=== PATIENT | male | born 1990 | race African-American/Black ===

== ENCOUNTER 2017-05-04 02:08 | Inpatient (IN) | payer MEDICAID, OTHER ==
[~2017-05-04] VITALS: Ht 167.6 cm; Wt 57.9 kg
[2017-05-04 03:50] LABS: Basophils # (auto) 0.1 uL; Basophils % (auto) 0.6 % (0.0-2.0); Eosinophils # (auto) 0.2 uL; Eosinophils % (auto) 1.1 % (0.0-7.0); Hematocrit 37.9 % (41.0-53.0); Hemoglobin 12.5 g/dL (13.5-17.5); Lymphocytes # (auto) 3.7 uL; Lymphocytes % (auto) 23.5 % (10.0-50.0); Mean Corpuscular Hemoglobin 28.6 pg (28.0-32.0); Mean Corpuscular Hgb Conc. 32.9 g/dL (32.0-36.0); Mean Corpuscular Volume 86.9 fL (80.0-100.0); Monocytes # (auto) 1.5 uL; Monocytes % (auto) 9.6 % (0.0-12.0); Neutrophils # (auto) 10.2 uL; Neutrophils % (auto) 65.2 % (37.0-80.0); Nucleated Red Blood Cells % 0.2 %; Platelet Count (auto) 201 10^3/uL (140-450); Red Cell Distribution Width 15.6 % (11.8-14.3); White Blood Cell 15.7 10^3/uL (4.4-10.8)
[2017-05-04 03:52] LABS: Lactic Acid w/Reflex 3.2 mmol/L (0.4-2.0)
[2017-05-04 03:56] LABS: REFLEX LACTIC ACID YES OR NO YES
[2017-05-04 04:21] LABS: Albumin 2.5 g/dL (3.4-5.0); BUN/Creatinine Ratio 12.1; Calcium 8.2 mg/dL (8.5-10.1); Potassium 3.8 mmol/L (3.5-5.1)
[2017-05-04 04:24] LABS: Bilirubin, Total 0.2 mg/dL (0.2-1.0); Total Protein 8.1 g/dL (6.4-8.2)
[2017-05-04] MEDS ORDERED: SODIUM CHLORIDE 0.9% 1,000 ML IV ONE ×2 (07:14)
[2017-05-04] MEDS ORDERED: LEVOFLOXACIN 500MG 100 ML IV ONE (07:15)
[2017-05-04] MEDS ORDERED: CLINDAMYCIN 900MG IV 50 ML IV ONE (07:15)
[2017-05-04] MEDS ORDERED: HYDROcodone-ACET 5/325MG TAB PO ONE (07:45)
[2017-05-04 08:04] LABS: INR 1.09 (0.9-1.15); Partial Thromboplastin Time 29.4 sec (22.64-33.71); Prothrombin Time 11.9 sec (9.37-12.3)
[2017-05-04] MEDS ORDERED: LORazepam 0.5 MG TAB PO PRN (09:00)
[2017-05-04] MEDS ORDERED: TEMAZEPAM 15 MG CAP PO PRN (09:00)
[2017-05-04] MEDS ORDERED: NITROGLYCERIN 0.4 MG SL TAB SL PRN (09:00)
[2017-05-04] MEDS ORDERED: PROMETHAZINE HCL 25 MG/ML 1ML IV PRN (09:00)
[2017-05-04] MEDS ORDERED: LABETALOL HCL 5 MG/ML ML 20ML VIAL IV PRN ×2 (09:00)
[2017-05-04] MEDS ORDERED: ACETAMINOPHEN 500 MG TAB PO PRN (09:00)
[2017-05-04] MEDS ORDERED: LACTULOSE 20Gm/30ML SOLN PO PRN (09:00)
[2017-05-04] MEDS ORDERED: HYDROcodone-ACET 5/325MG TAB PO PRN (09:00)
[2017-05-04] MEDS ORDERED: MORPHINE SULF INJ 2 MG/ML SYRINGE 1ML IV PRN ×2 (09:00)
[2017-05-04] MEDS ORDERED: VANCOMYCIN PER PHARMACY 0 MG IV SCH (09:30)
[2017-05-04] MEDS ORDERED: ERTAPENEM SOD INJ 1 GM in SODIUM CHL 0.9% 50 ML IV SCH (10:00)
[2017-05-04] MEDS ORDERED: LEVOFLOXACIN 500MG 100 ML IV SCH (10:00)
[2017-05-04] MEDS: FAMOTIDINE (10MG/ML) 2ML VL IV SCH ×2 (10:08→22:56)
[2017-05-04] MEDS: ENOXAPARIN SOD 40 MG/0.4 ML SYRINGE SC SCH (10:08)
[2017-05-04] MEDS ORDERED: VANCOMYCIN 750 MG in SODIUM CHL 0.9% 250 ML IV SCH (11:00)
[2017-05-04 11:09] LABS: Urine Bilirubin Negative (Negative); Urine Blood TRACE /uL (Negative); Urine Color Yellow (Yellow); Urine Glucose Normal (Normal); Urine Ketone Negative (Negative); Urine Mucus FEW (None Seen); Urine Nitrite Negative (Negative); Urine RBC 13 /hpf (0 - 3); Urine Urobilinogen Normal (Negative); Urine WBC Clumps PRESENT /hpf (None Seen); Urine pH 6.5 (5.0-8.0)
[2017-05-04] MEDS ORDERED: CLINDAMYCIN 600MG IV 50 ML IV SCH (14:00)
[2017-05-04] MEDS ORDERED: VANCOMYCIN 1GM/250ML 250 ML IV ONE (23:49)
[2017-05-05] VITALS (8 sets, daily range): BP systolic 100–137; BP diastolic 54–85
[2017-05-05] MEDS: VANCOMYCIN 750 MG in D5W 5% 250 ML IV SCH ×2 (00:14→10:54)
[2017-05-05 05:49] LABS: Basophils # (auto) 0.1 uL; Basophils % (auto) 0.6 % (0.0-2.0); Eosinophils # (auto) 0.3 uL; Eosinophils % (auto) 2.8 % (0.0-7.0); Hematocrit 33.5 % (41.0-53.0); Hemoglobin 11.1 g/dL (13.5-17.5); Lymphocytes # (auto) 2.5 uL; Lymphocytes % (auto) 22.5 % (10.0-50.0); Mean Corpuscular Hemoglobin 28.7 pg (28.0-32.0); Mean Corpuscular Hgb Conc. 33.1 g/dL (32.0-36.0); Mean Corpuscular Volume 86.9 fL (80.0-100.0); Mean Platelet Volume 8.2 fL (6.9-10.8); Monocytes # (auto) 1.4 uL; Monocytes % (auto) 12.3 % (0.0-12.0); Neutrophils # (auto) 6.9 uL; Neutrophils % (auto) 61.8 % (37.0-80.0); Nucleated Red Blood Cells % 0.1 %; Platelet Count (auto) 441 10^3/uL (140-450); Red Cell Distribution Width 15.4 % (11.8-14.3); White Blood Cell 11.2 10^3/uL (4.4-10.8)
[2017-05-05 06:01] LABS: Albumin 2.5 g/dL (3.4-5.0); BUN/Creatinine Ratio 9.1; Calcium 8.5 mg/dL (8.5-10.1); Potassium 3.5 mmol/L (3.5-5.1)
[2017-05-05 06:04] LABS: Bilirubin, Total 0.4 mg/dL (0.2-1.0); Total Protein 7.8 g/dL (6.4-8.2)
[2017-05-05] MEDS: FAMOTIDINE (10MG/ML) 2ML VL IV SCH ×2 (09:25→21:53)
[2017-05-05] MEDS: ENOXAPARIN SOD 40 MG/0.4 ML SYRINGE SC SCH (09:27)
[2017-05-05] MEDS ORDERED: ERTAPENEM SOD INJ 1 GM in SODIUM CHL 0.9% 100 ML IV SCH (10:00)
[2017-05-05] MEDS ORDERED: POLYETHYLENE GLYCOL 17 GM PWDR PO ONE (16:15)
[2017-05-05] MEDS: LEVOFLOXACIN 500MG 100 ML IV SCH (17:34)
[2017-05-05] MEDS: DOCUSATE SOD 100 MG CAP PO SCH ×2 (17:35→21:53)
[2017-05-05] MEDS: CLINDAMYCIN HCL 150 MG CAP PO SCH (21:52)
[2017-05-05] MEDS: metroNIDAZOLE 500 MG TAB PO SCH (21:52)
[2017-05-06 05:11] VITALS: BP 121/71
[2017-05-06 05:52] LABS: Basophils # (auto) 0.1 uL; Eosinophils # (auto) 0.2 uL; Hemoglobin 11.5 g/dL (13.5-17.5); Lymphocytes # (auto) 2.5 uL; White Blood Cell 10.3 10^3/uL (4.4-10.8)
[2017-05-06 05:57] LABS: Basophils % (auto) 0.8 % (0.0-2.0); Hematocrit 34.4 % (41.0-53.0); Lymphocytes % (auto) 24.5 % (10.0-50.0); Mean Corpuscular Hemoglobin 28.7 pg (28.0-32.0); Mean Corpuscular Hgb Conc. 33.4 g/dL (32.0-36.0); Mean Corpuscular Volume 85.8 fL (80.0-100.0); Monocytes # (auto) 1.3 uL; Monocytes % (auto) 12.7 % (0.0-12.0); Neutrophils # (auto) 6.2 uL; Platelet Count (auto) 466 10^3/uL (140-450); Red Cell Distribution Width 15.2 % (11.8-14.3)
[2017-05-06 06:03] LABS: INR 1.16 (0.9-1.15); Partial Thromboplastin Time 30.1 sec (22.64-33.71); Prothrombin Time 12.7 sec (9.37-12.3)
[2017-05-06] MEDS: CLINDAMYCIN HCL 150 MG CAP PO SCH ×3 (06:13→21:43)
[2017-05-06] MEDS: DOCUSATE SOD 100 MG CAP PO SCH ×3 (06:13→21:44)
[2017-05-06] MEDS: metroNIDAZOLE 500 MG TAB PO SCH ×3 (06:13→21:44)
[2017-05-06 06:15] LABS: BUN/Creatinine Ratio 15.4; Calcium 8.3 mg/dL (8.5-10.1); Magnesium 2.4 mg/dL (1.6-2.6); Potassium 3.8 mmol/L (3.5-5.1)
[2017-05-06 07:16] LABS: Anisocytosis Slight; Platelet Estimate Increased
[2017-05-06 08:00] VITALS: BP 108/68
[2017-05-06 09:00] VITALS: BP 108/68
[2017-05-06] MEDS: FAMOTIDINE (10MG/ML) 2ML VL IV SCH ×2 (09:57→21:44)
[2017-05-06] MEDS: LEVOFLOXACIN 500MG 100 ML IV SCH (09:57)
[2017-05-06] MEDS: ENOXAPARIN SOD 40 MG/0.4 ML SYRINGE SC SCH (09:57)
[2017-05-06 13:00] VITALS: BP 119/68
[2017-05-06 17:06] VITALS: BP 134/78
[2017-05-06 22:00] VITALS: BP 82/44
[2017-05-07 05:00] VITALS: BP 125/52
[2017-05-07] MEDS: metroNIDAZOLE 500 MG TAB PO SCH ×3 (05:29→22:36)
[2017-05-07] MEDS: DOCUSATE SOD 100 MG CAP PO SCH ×3 (05:29→22:00)
[2017-05-07] MEDS: CLINDAMYCIN HCL 150 MG CAP PO SCH ×3 (05:33→22:00)
[2017-05-07 08:00] VITALS: BP 125/76
[2017-05-07 09:00] VITALS: BP 125/76
[2017-05-07] MEDS ORDERED: CLINDAMYCIN HCL 150 MG CAP PO ONE (09:00)
[2017-05-07 09:47] LABS: Basophils # (auto) 0.1 uL; Eosinophils # (auto) 0.1 uL; Nucleated Red Blood Cells % 0.1 %
[2017-05-07 09:49] LABS: Basophils % (auto) 0.6 % (0.0-2.0); Eosinophils % (auto) 1.4 % (0.0-7.0); Hemoglobin 13.2 g/dL (13.5-17.5); Lymphocytes # (auto) 2.2 uL; Lymphocytes % (auto) 20.3 % (10.0-50.0); Mean Corpuscular Hemoglobin 28.5 pg (28.0-32.0); Mean Corpuscular Hgb Conc. 32.9 g/dL (32.0-36.0); Mean Corpuscular Volume 86.5 fL (80.0-100.0); Mean Platelet Volume 7.6 fL (6.9-10.8); Monocytes # (auto) 1.4 uL; Monocytes % (auto) 12.8 % (0.0-12.0); Neutrophils # (auto) 7.2 uL; Neutrophils % (auto) 64.9 % (37.0-80.0); Platelet Count (auto) 525 10^3/uL (140-450); Red Cell Distribution Width 15.4 % (11.8-14.3); White Blood Cell 11.1 10^3/uL (4.4-10.8)
[2017-05-07 09:53] LABS: INR 1.08 (0.9-1.15); Partial Thromboplastin Time 30.3 sec (22.64-33.71); Prothrombin Time 11.8 sec (9.37-12.3)
[2017-05-07] MEDS: LEVOFLOXACIN 500MG 100 ML IV SCH (09:53)
[2017-05-07] MEDS: FAMOTIDINE (10MG/ML) 2ML VL IV SCH ×2 (09:53→21:00)
[2017-05-07] MEDS: ENOXAPARIN SOD 40 MG/0.4 ML SYRINGE SC SCH (09:54)
[2017-05-07 09:58] LABS: Bilirubin, Total 0.3 mg/dL (0.2-1.0); Magnesium 2.6 mg/dL (1.6-2.6); Potassium 3.9 mmol/L (3.5-5.1); Total Protein 9.5 g/dL (6.4-8.2)
[2017-05-07 13:00] VITALS: BP 78/60
[2017-05-07 17:09] VITALS: BP 86/63
[2017-05-07] MEDS ORDERED: BUPIVACAINE 0.25% INJ 50ML VIAL ONE (19:03)
[2017-05-07] MEDS ORDERED: LIDOCAINE 1% HCL (LOCAL ANESTH.) INJ 20ML MDV ONE (19:03)
[2017-05-07] MEDS ORDERED: MINERAL OIL LIGHT TOPICAL 25 ML TOP ONE (19:21)
[2017-05-07] MEDS ORDERED: CLINDAMYCIN 900MG IV 50 ML IV ONE (19:44)
[2017-05-07] MEDS ORDERED: fentaNYL CITRATE 100 MCG/2 ML VL ONE ×3 (19:55→21:00)
[2017-05-07] MEDS ORDERED: MIDAZOLAM HCL 1MG/1ML-2 ML VIAL ONE (19:55)
[2017-05-07 20:00] VITALS: BP 130/100
[2017-05-07] MEDS ORDERED: SILVER SULFADIAZINE 1 % TOPICAL CREAM 50GM TOP ONE (21:10)
[2017-05-07] MEDS ORDERED: ONDANSETRON HCL 4 MG/2 ML VIAL IV ONE (22:00)
[2017-05-07] MEDS ORDERED: hydrALAZINE HCL 20 MG/ML VL IV PRN (22:00)
[2017-05-07] MEDS ORDERED: ePHEDrine SULFATE 50 MG/ML AMP IV PRN (22:00)
[2017-05-07] MEDS ORDERED: MORPHINE SULF INJ 2 MG/ML SYRINGE 1ML IV PRN (22:00)
[2017-05-07] MEDS: POTASSIUM CHLORIDE 20 MEQ in D5W/LACTATED RINGERS 1,000 ML IV SCH (22:36)
[2017-05-08] MEDS: DOCUSATE SOD 100 MG CAP PO SCH ×3 (06:00→21:09)
[2017-05-08] MEDS: CLINDAMYCIN HCL 150 MG CAP PO SCH ×2 (06:00→08:02)
[2017-05-08] MEDS: metroNIDAZOLE 500 MG TAB PO SCH ×3 (06:11→21:08)
[2017-05-08 06:20] LABS: Basophils # (auto) 0 uL; Basophils % (auto) 0.4 % (0.0-2.0); Eosinophils # (auto) 0 uL; Lymphocytes # (auto) 2.1 uL; Neutrophils # (auto) 8.4 uL
[2017-05-08 06:22] LABS: Eosinophils % (auto) 0.2 % (0.0-7.0); Hematocrit 35.1 % (41.0-53.0); Hemoglobin 11.7 g/dL (13.5-17.5); Lymphocytes % (auto) 17.6 % (10.0-50.0); Mean Corpuscular Hemoglobin 28.5 pg (28.0-32.0); Mean Corpuscular Hgb Conc. 33.5 g/dL (32.0-36.0); Mean Corpuscular Volume 85.1 fL (80.0-100.0); Mean Platelet Volume 7.9 fL (6.9-10.8); Monocytes # (auto) 1.5 uL; Monocytes % (auto) 12.1 % (0.0-12.0); Neutrophils % (auto) 69.7 % (37.0-80.0); Platelet Count (auto) 554 10^3/uL (140-450); Red Cell Distribution Width 15.3 % (11.8-14.3); White Blood Cell 12.1 10^3/uL (4.4-10.8)
[2017-05-08 06:41] LABS: BUN/Creatinine Ratio 28.8; Calcium 8.7 mg/dL (8.5-10.1); Potassium 3.8 mmol/L (3.5-5.1)
[2017-05-08] MEDS: POTASSIUM CHLORIDE 20 MEQ in D5W/LACTATED RINGERS 1,000 ML IV SCH (08:13)
[2017-05-08 09:00] VITALS: BP 90/46
[2017-05-08] MEDS: LEVOFLOXACIN 500MG 100 ML IV SCH (09:47)
[2017-05-08] MEDS: FAMOTIDINE (10MG/ML) 2ML VL IV SCH ×2 (09:48→21:08)
[2017-05-08] MEDS: ENOXAPARIN SOD 40 MG/0.4 ML SYRINGE SC SCH (09:48)
[2017-05-08] MEDS ORDERED: VANCOMYCIN 1GM/250ML 250 ML IV ONE (11:15)
[2017-05-08] MEDS ORDERED: VANCOMYCIN PER PHARMACY 0 MG IV SCH (11:15)
[2017-05-08 13:00] VITALS: BP 86/47
[2017-05-08] MEDS: VANCOMYCIN 750 MG in D5W 5% 250 ML IV SCH (14:20)
[2017-05-08 17:00] VITALS: BP 86/50
[2017-05-08] MEDS ORDERED: SODIUM CHLORIDE 0.9% 1,000 ML IV ONE (20:15)
[2017-05-08 21:03] VITALS: BP 89/52
[2017-05-08 21:54] VITALS: BP 106/59
[2017-05-09] MEDS: VANCOMYCIN 750 MG in D5W 5% 250 ML IV SCH ×2 (01:00→13:41)
[2017-05-09 05:21] VITALS: BP 104/57
[2017-05-09] MEDS: DOCUSATE SOD 100 MG CAP PO SCH ×3 (05:55→22:00)
[2017-05-09] MEDS: metroNIDAZOLE 500 MG TAB PO SCH ×3 (05:55→22:00)
[2017-05-09 06:10] LABS: Basophils # (auto) 0.1 uL; Eosinophils # (auto) 0.1 uL; Monocytes # (auto) 1.6 uL; White Blood Cell 10.1 10^3/uL (4.4-10.8)
[2017-05-09 06:13] LABS: Basophils % (auto) 0.5 % (0.0-2.0); Hematocrit 33.2 % (41.0-53.0); Lymphocytes # (auto) 2.3 uL; Lymphocytes % (auto) 22.9 % (10.0-50.0); Mean Corpuscular Hemoglobin 28.6 pg (28.0-32.0); Mean Corpuscular Hgb Conc. 33.2 g/dL (32.0-36.0); Mean Corpuscular Volume 86.2 fL (80.0-100.0); Mean Platelet Volume 7.8 fL (6.9-10.8); Monocytes % (auto) 15.5 % (0.0-12.0); Neutrophils # (auto) 6.1 uL; Neutrophils % (auto) 60.1 % (37.0-80.0); Platelet Count (auto) 531 10^3/uL (140-450); Red Cell Distribution Width 15.5 % (11.8-14.3)
[2017-05-09 06:23] LABS: INR 1.22 (0.9-1.15); Partial Thromboplastin Time 31.8 sec (22.64-33.71); Prothrombin Time 13.3 sec (9.37-12.3)
[2017-05-09 06:39] LABS: Albumin 2.4 g/dL (3.4-5.0); BUN/Creatinine Ratio 19.6; Calcium 8.2 mg/dL (8.5-10.1); Potassium 3.4 mmol/L (3.5-5.1)
[2017-05-09 06:41] LABS: Bilirubin, Total 0.2 mg/dL (0.2-1.0); Total Protein 7.8 g/dL (6.4-8.2)
[2017-05-09 08:00] VITALS: BP 91/54
[2017-05-09 08:30] VITALS: BP 91/54
[2017-05-09] MEDS: ENOXAPARIN SOD 40 MG/0.4 ML SYRINGE SC SCH (10:00)
[2017-05-09] MEDS: FAMOTIDINE (10MG/ML) 2ML VL IV SCH ×2 (11:26→21:00)
[2017-05-09] MEDS: LEVOFLOXACIN 500MG 100 ML IV SCH (11:26)
[2017-05-09 13:00] VITALS: BP 110/62
[2017-05-09] MEDS ORDERED: POTASSIUM CHL 10% (20 MEQ/15ML) 15ml ORAL SOLN PO ONE (13:45)
[2017-05-09] MEDS ORDERED: PHYTONADIONE ORAL Susp 10 mg/10ml PO ONE (13:45)
[2017-05-09 16:55] VITALS: BP 126/68
[2017-05-09 22:37] VITALS: BP 100/55
[2017-05-10] MEDS: VANCOMYCIN 750 MG in D5W 5% 250 ML IV SCH (01:00)
[2017-05-10 05:03] VITALS: BP 99/55
[2017-05-10 05:50] LABS: Basophils # (auto) 0.1 uL; Eosinophils # (auto) 0.2 uL; Eosinophils % (auto) 2.1 % (0.0-7.0)
[2017-05-10 05:54] LABS: Basophils % (auto) 0.7 % (0.0-2.0); Hematocrit 33.5 % (41.0-53.0); Lymphocytes % (auto) 27.6 % (10.0-50.0); Mean Corpuscular Hemoglobin 28.3 pg (28.0-32.0); Mean Corpuscular Hgb Conc. 32.8 g/dL (32.0-36.0); Mean Corpuscular Volume 86.3 fL (80.0-100.0); Mean Platelet Volume 7.8 fL (6.9-10.8); Monocytes # (auto) 1.6 uL; Monocytes % (auto) 14.5 % (0.0-12.0); Neutrophils # (auto) 5.9 uL; Neutrophils % (auto) 55.1 % (37.0-80.0); Platelet Count (auto) 527 10^3/uL (140-450); Red Cell Distribution Width 15.4 % (11.8-14.3); White Blood Cell 10.8 10^3/uL (4.4-10.8)
[2017-05-10 05:58] LABS: INR 1.18 (0.9-1.15); Partial Thromboplastin Time 30.8 sec (22.64-33.71); Prothrombin Time 12.9 sec (9.37-12.3)
[2017-05-10] MEDS: DOCUSATE SOD 100 MG CAP PO SCH ×4 (06:00→22:34)
[2017-05-10 06:12] LABS: BUN/Creatinine Ratio 19.1; Calcium 8.3 mg/dL (8.5-10.1); Magnesium 2.3 mg/dL (1.6-2.6); Potassium 3.8 mmol/L (3.5-5.1)
[2017-05-10] MEDS: metroNIDAZOLE 500 MG TAB PO SCH ×3 (06:22→22:19)
[2017-05-10 09:00] VITALS: BP 108/59
[2017-05-10] MEDS: ASCORBIC ACID 500 MG TAB PO SCH ×2 (10:00→22:20)
[2017-05-10] MEDS: ENOXAPARIN SOD 40 MG/0.4 ML SYRINGE SC SCH (10:00)
[2017-05-10] MEDS: MULTIPLE VITAMINS W/ MINERALS TAB PO SCH (10:00)
[2017-05-10] MEDS: VANCOMYCIN 1GM/250ML 250 ML IV SCH ×2 (10:10→17:52)
[2017-05-10] MEDS: FAMOTIDINE (10MG/ML) 2ML VL IV SCH ×2 (10:10→22:19)
[2017-05-10] MEDS: LEVOFLOXACIN 500MG 100 ML IV SCH (11:35)
[2017-05-10] MEDS: BOOST PLUS 8 ounce PO SCH ×2 (12:31→22:34)
[2017-05-10 13:00] VITALS: BP 130/77
[2017-05-10 17:00] VITALS: BP 103/49
[2017-05-10 20:00] VITALS: BP 116/71
[2017-05-10 22:00] VITALS: BP 116/71
[2017-05-11] MEDS: VANCOMYCIN 1GM/250ML 250 ML IV SCH (00:59)
[2017-05-11 05:00] VITALS: BP 94/68
[2017-05-11] MEDS: metroNIDAZOLE 500 MG TAB PO SCH ×3 (05:21→21:48)
[2017-05-11] MEDS: BOOST PLUS 8 ounce PO SCH ×3 (06:00→21:53)
[2017-05-11 06:21] LABS: Basophils # (auto) 0.1 uL; Eosinophils # (auto) 0.3 uL; Lymphocytes # (auto) 3.4 uL; Mean Platelet Volume 7.8 fL (6.9-10.8); Monocytes # (auto) 1.2 uL; Red Cell Distribution Width 15.2 % (11.8-14.3)
[2017-05-11 06:24] LABS: Basophils % (auto) 1.3 % (0.0-2.0); Eosinophils % (auto) 2.7 % (0.0-7.0); Hematocrit 32.1 % (41.0-53.0); Hemoglobin 10.9 g/dL (13.5-17.5); Lymphocytes % (auto) 35.3 % (10.0-50.0); Mean Corpuscular Hemoglobin 28.7 pg (28.0-32.0); Mean Corpuscular Hgb Conc. 33.9 g/dL (32.0-36.0); Mean Corpuscular Volume 84.6 fL (80.0-100.0); Monocytes % (auto) 13.1 % (0.0-12.0); Neutrophils # (auto) 4.5 uL; Neutrophils % (auto) 47.6 % (37.0-80.0); Nucleated Red Blood Cells % 0.1 %; Platelet Count (auto) 565 10^3/uL (140-450); White Blood Cell 9.5 10^3/uL (4.4-10.8)
[2017-05-11 06:34] LABS: INR 1.2 (0.9-1.15); Partial Thromboplastin Time 29.4 sec (22.64-33.71); Prothrombin Time 13.1 sec (9.37-12.3)
[2017-05-11 06:37] LABS: Albumin 2.6 g/dL (3.4-5.0); BUN/Creatinine Ratio 16.3; Calcium 8.4 mg/dL (8.5-10.1); Magnesium 2.2 mg/dL (1.6-2.6); Potassium 3.7 mmol/L (3.5-5.1)
[2017-05-11 06:40] LABS: Bilirubin, Total 0.2 mg/dL (0.2-1.0); Total Protein 8.5 g/dL (6.4-8.2)
[2017-05-11] MEDS ORDERED: CLINDAMYCIN 900MG IV 0 ML IV ONE (08:22)
[2017-05-11] MEDS ORDERED: LIDOCAINE 1% HCL (LOCAL ANESTH.) INJ 20ML MDV ONE ×2 (08:26→09:07)
[2017-05-11] MEDS ORDERED: MINERAL OIL LIGHT TOPICAL 25 ML TOP ONE (08:26)
[2017-05-11] MEDS ORDERED: BUPIVACAINE 0.25% INJ 50ML VIAL ONE ×2 (08:26→09:07)
[2017-05-11] MEDS ORDERED: CLINDAMYCIN 900MG IV 50 ML IV ONE (08:28)
[2017-05-11] MEDS ORDERED: MIDAZOLAM HCL 1MG/1ML-2 ML VIAL IV PRN (08:45)
[2017-05-11] MEDS ORDERED: LABETALOL HCL 5 MG/ML 4ML SYRINGE IV PRN (08:45)
[2017-05-11] MEDS ORDERED: ONDANSETRON HCL 4 MG/2 ML VIAL IV ONE (08:45)
[2017-05-11] MEDS ORDERED: HYDROmorphone HCL 2 MG/ML VL IV PRN (08:45)
[2017-05-11] MEDS ORDERED: KETOROLAC TROMETH 30 MG/ML 1ML VIAL IV ONE (08:45)
[2017-05-11] MEDS ORDERED: ePHEDrine SULFATE 50 MG/ML AMP IV PRN (08:45)
[2017-05-11] MEDS ORDERED: hydrALAZINE HCL 20 MG/ML VL IV PRN (08:45)
[2017-05-11 09:00] VITALS: BP 112/67
[2017-05-11] MEDS ORDERED: ceFAZolin 1GM VL ONE (09:09)
[2017-05-11] MEDS ORDERED: MIDAZOLAM HCL 1MG/1ML-2 ML VIAL ONE (09:17)
[2017-05-11] MEDS ORDERED: MEPERIDINE HCL (50 MG/ML) 1 ML VIAL ONE (09:17)
[2017-05-11] MEDS ORDERED: fentaNYL CITRATE 100 MCG/2 ML VL ONE (09:17)
[2017-05-11] MEDS ORDERED: PROPOFOL 10 MG/ML 20 ML IV ONE (09:28)
[2017-05-11] MEDS ORDERED: PHENYLEPHRINE HCL 10 MG/ML VL ONE (09:47)
[2017-05-11] MEDS: ASCORBIC ACID 500 MG TAB PO SCH ×2 (10:00→21:49)
[2017-05-11] MEDS: MULTIPLE VITAMINS W/ MINERALS TAB PO SCH (10:00)
[2017-05-11] MEDS: ENOXAPARIN SOD 40 MG/0.4 ML SYRINGE SC SCH (10:00)
[2017-05-11] MEDS ORDERED: MORPHINE SULF INJ 2 MG/ML SYRINGE 1ML IV ONE (10:00)
[2017-05-11] MEDS ORDERED: MORPHINE SULFATE 4 MG/ML SYRG IV PRN (10:45)
[2017-05-11 12:34] VITALS: BP 102/56
[2017-05-11 14:00] VITALS: BP 106/53
[2017-05-11] MEDS: DOCUSATE SOD 100 MG CAP PO SCH ×2 (14:00→21:48)
[2017-05-11] MEDS: LEVOFLOXACIN 500MG 100 ML IV SCH (14:57)
[2017-05-11] MEDS: FAMOTIDINE (10MG/ML) 2ML VL IV SCH ×2 (14:58→21:48)
[2017-05-11 17:00] VITALS: BP 101/51
[2017-05-11] MEDS: VANCOMYCIN 750 MG in SODIUM CHL 0.9% 250 ML IV SCH (21:05)
[2017-05-11 22:00] VITALS: BP 108/59
[2017-05-12 05:00] VITALS: BP 104/62
[2017-05-12] MEDS: VANCOMYCIN 750 MG in SODIUM CHL 0.9% 250 ML IV SCH ×2 (05:45→16:19)
[2017-05-12 08:00] VITALS: BP 141/85
[2017-05-12] MEDS: BOOST PLUS 8 ounce PO SCH ×2 (08:00→14:00)
[2017-05-12] MEDS: metroNIDAZOLE 500 MG TAB PO SCH ×2 (08:18→16:18)
[2017-05-12] MEDS: DOCUSATE SOD 100 MG CAP PO SCH ×2 (08:22→14:00)
[2017-05-12 09:00] VITALS: BP 141/85
[2017-05-12] MEDS: ENOXAPARIN SOD 40 MG/0.4 ML SYRINGE SC SCH (10:16)
[2017-05-12] MEDS: FAMOTIDINE (10MG/ML) 2ML VL IV SCH (10:16)
[2017-05-12] MEDS: LEVOFLOXACIN 500MG 100 ML IV SCH (10:16)
[2017-05-12] MEDS: ASCORBIC ACID 500 MG TAB PO SCH (10:16)
[2017-05-12] MEDS: MULTIPLE VITAMINS W/ MINERALS TAB PO SCH (10:17)
[2017-05-12 12:44] VITALS: BP 141/85
[2017-05-12 13:00] VITALS: BP 100/51
[2017-05-12 17:00] VITALS: BP 129/77
== END 2017-05-12 19:55 | DRG 710 ==
LOC: EDBD 02:08 → ER 02:08 → TELE 02:09 → TELE-WESTW 22:00
PROVIDERS: ADMIT Internal Medicine; ATTEND Internal Medicine
PROC: 0HRNX74 Replacement of Left Foot Skin with Autologous Tissue Substitute, Partial Thickness, External Approach (ICD-10-PCS; 2017-05-07)
PROC: 0QB30ZZ Excision of Left Pelvic Bone, Open Approach (ICD-10-PCS; 2017-05-07)
PROC: 0HBNXZZ Excision of Left Foot Skin, External Approach (ICD-10-PCS; 2017-05-07)
PROC: 0KXP0ZZ Transfer Left Hip Muscle, Open Approach (ICD-10-PCS; 2017-05-07)
PROC: 0HBLXZZ Excision of Left Lower Leg Skin, External Approach (ICD-10-PCS; principal; 2017-05-07 19:54)
PROC: 0QB20ZZ Excision of Right Pelvic Bone, Open Approach (ICD-10-PCS; 2017-05-11)
PROC: 0HRHX74 Replacement of Right Upper Leg Skin with Autologous Tissue Substitute, Partial Thickness, External Approach (ICD-10-PCS; 2017-05-11)
PROC: 0QB10ZZ Excision of Sacrum, Open Approach (ICD-10-PCS; 2017-05-11)
PROC: 0HR6X74 Replacement of Back Skin with Autologous Tissue Substitute, Partial Thickness, External Approach (ICD-10-PCS; 2017-05-11)
DX: A41.89 Other specified sepsis (principal); L89.154 Pressure ulcer of sacral region, stage 4; E44.0 Moderate protein-calorie malnutrition; L89.224 Pressure ulcer of left hip, stage 4; L89.214 Pressure ulcer of right hip, stage 4; L89.524 Pressure ulcer of left ankle, stage 4; G82.20 Paraplegia, unspecified; N31.9 Neuromuscular dysfunction of bladder, unspecified; N39.0 Urinary tract infection, site not specified; F17.210 Nicotine dependence, cigarettes, uncomplicated; K59.00 Constipation, unspecified; Z16.24 Resistance to multiple antibiotics; F41.9 Anxiety disorder, unspecified; G47.00 Insomnia, unspecified; B96.5 Pseudomonas (aeruginosa) (mallei) (pseudomallei) as the cause of diseases classified elsewhere; I16.0 Hypertensive urgency; K62.89 Other specified diseases of anus and rectum; Z68.20 Body mass index [BMI] 20.0-20.9, adult; Z74.01 Bed confinement status; Z87.828 Personal history of other (healed) physical injury and trauma; Z88.0 Allergy status to penicillin; B95.62 Methicillin resistant Staphylococcus aureus infection as the cause of diseases classified elsewhere; B96.20 Unspecified Escherichia coli [E. coli] as the cause of diseases classified elsewhere
CPT/HCPCS: 36415; 51702; 71010; 74176; 80048; 80053; 80202; 81001; 83605; 83735; 85025; 85610; 85652; 85730; 86141; 87040; 87077; 87081; 87086; 87147; 87186; 87205; 96365; 96366; 96368; J0690; J1335; J1956; J2001; J2250; J2704; J3490; J7060

== ENCOUNTER 2017-06-28 00:23 | Inpatient (IN) | payer MEDICAID ==
[~2017-06-28] VITALS: Ht 190.5 cm; Wt 59.9 kg
[2017-06-28 05:14] LABS: Basophils # (auto) 0.1 uL; Basophils % (auto) 0.6 % (0.0-2.0); Eosinophils # (auto) 0.5 uL; Neutrophils # (auto) 5.2 uL
[2017-06-28 05:15] LABS: Eosinophils % (auto) 5.8 % (0.0-7.0); Hematocrit 41.7 % (41.0-53.0); Hemoglobin 13.6 g/dL (13.5-17.5); Mean Corpuscular Hemoglobin 29.1 pg (28.0-32.0); Mean Corpuscular Hgb Conc. 32.7 g/dL (32.0-36.0); Mean Corpuscular Volume 88.9 fL (80.0-100.0); Monocytes % (auto) 11.3 % (0.0-12.0); Neutrophils % (auto) 59.3 % (37.0-80.0); Nucleated Red Blood Cells % 0.1 %; Platelet Count (auto) 475 10^3/uL (140-450); Red Blood Cells 4.69 10^6/uL (4.5-5.90); Red Cell Distribution Width 15.3 % (11.8-14.3); White Blood Cell 8.7 10^3/uL (4.4-10.8)
[2017-06-28 05:24] LABS: Urine Bacteria MOD /hpf (None Seen); Urine Blood 3+ /uL (Negative); Urine Mucus FEW (None Seen); Urine Specific Gravity 1.021 (1.001-1.035); Urine WBC 1684 /hpf (0 - 3); Urine WBC Clumps PRESENT /hpf (None Seen)
[2017-06-28 05:35] LABS: Albumin 3.1 g/dL (3.4-5.0); BUN/Creatinine Ratio 17.6; Calcium 9.2 mg/dL (8.5-10.1); Potassium 5.4 mmol/L (3.5-5.1)
[2017-06-28 05:38] LABS: Alcohol, Urine < 3.0 mg/dL (0-5); Amphetamine Screen, Urine NEGATIVE (NEGATIVE); Barbiturate Scree,Urine NEGATIVE (NEGATIVE); Benzodiazephine Screen, Urine NEGATIVE (NEGATIVE); Bilirubin, Total 0.3 mg/dL (0.2-1.0); Cannabinoid Screen, Urine POSITIVE (NEGATIVE); Cocaine Screen, Urine NEGATIVE (NEGATIVE); Opiate Scree,Urine NEGATIVE (NEGATIVE); Phencyclidine Screen, Urine NEGATIVE (NEGATIVE); Total Protein 9.6 g/dL (6.4-8.2)
[2017-06-28] MEDS ORDERED: ALBUTEROL SULF 2.5 MG/0.5ML(0.5%) NEB SOLN NEB STA (07:40)
[2017-06-28] MEDS ORDERED: DEXTROSE (50%) 50ML SYRG IV ONE (07:45)
[2017-06-28] MEDS ORDERED: InsuLIN REG 1unit/0.01ml Soln (100units/ml) IV ONE (07:45)
[2017-06-28] MEDS ORDERED: CALCIUM GLUC 4.65meq/50ml D5AE 50 ML IV ONE (07:45)
[2017-06-28] MEDS ORDERED: VANCOMYCIN 1GM/250ML 250 ML IV ONE (08:00)
[2017-06-28] MEDS ORDERED: LACTULOSE 20Gm/30ML SOLN PO PRN (09:15)
[2017-06-28] MEDS ORDERED: PROMETHAZINE HCL 25 MG/ML 1ML IV PRN (09:15)
[2017-06-28] MEDS ORDERED: TEMAZEPAM 15 MG CAP PO PRN (09:15)
[2017-06-28] MEDS ORDERED: MORPHINE SULFATE 4 MG/ML SYR/VIAL IV PRN (09:15)
[2017-06-28] MEDS ORDERED: VANCOMYCIN PER PHARMACY 0 MG IV SCH (09:15)
[2017-06-28] MEDS ORDERED: LORazepam 0.5 MG TAB PO PRN (09:15)
[2017-06-28] MEDS ORDERED: HYDROcodone-ACET 5/325MG TAB PO PRN (09:15)
[2017-06-28] MEDS: SODIUM CHLORIDE 0.9% 1,000 ML IV SCH ×2 (09:44→19:06)
[2017-06-28] MEDS ORDERED: SODIUM POLYSTYRENE SULF 15GM/60ML SUSP PO ONE (10:15)
[2017-06-28] MEDS: ENOXAPARIN SOD 40 MG/0.4 ML SYRINGE SC SCH (10:49)
[2017-06-28] MEDS: ERTAPENEM SOD INJ 1 GM in SODIUM CHL 0.9% 50 ML IV SCH (11:02)
[2017-06-28] MEDS ORDERED: POTASSIUM CHL 20 Meq TABLET PO ONE (15:15)
[2017-06-28 17:03] VITALS: BP 130/87
[2017-06-28 22:00] VITALS: BP 131/77
[2017-06-28] MEDS: ACETAMINOPHEN 500 MG TAB PO PRN (22:48)
[2017-06-29] MEDS: VANCOMYCIN 1GM/250ML 250 ML IV SCH ×2 (03:00→21:07)
[2017-06-29] MEDS: SODIUM CHLORIDE 0.9% 1,000 ML IV SCH ×2 (05:11→16:43)
[2017-06-29 05:39] VITALS: BP 112/68
[2017-06-29 06:51] LABS: Basophils # (auto) 0 uL; Basophils % (auto) 0.4 % (0.0-2.0); Eosinophils # (auto) 0.3 uL; Eosinophils % (auto) 3.5 % (0.0-7.0); Hematocrit 37.8 % (41.0-53.0); Hemoglobin 12.6 g/dL (13.5-17.5); Lymphocytes # (auto) 2.7 uL; Lymphocytes % (auto) 33.1 % (10.0-50.0); Mean Corpuscular Hemoglobin 29.3 pg (28.0-32.0); Mean Corpuscular Hgb Conc. 33.3 g/dL (32.0-36.0); Mean Corpuscular Volume 87.8 fL (80.0-100.0); Monocytes # (auto) 1.2 uL; Monocytes % (auto) 14.4 % (0.0-12.0); Neutrophils # (auto) 3.9 uL; Neutrophils % (auto) 48.6 % (37.0-80.0); Platelet Count (auto) 414 10^3/uL (140-450); Red Cell Distribution Width 15.2 % (11.8-14.3); White Blood Cell 8.1 10^3/uL (4.4-10.8)
[2017-06-29 07:04] LABS: Potassium 3.7 mmol/L (3.5-5.1)
[2017-06-29 07:13] LABS: Albumin 2.6 g/dL (3.4-5.0); Calcium 8.9 mg/dL (8.5-10.1)
[2017-06-29 07:26] LABS: Bilirubin, Total 0.3 mg/dL (0.2-1.0); Total Protein 7.9 g/dL (6.4-8.2)
[2017-06-29 09:03] VITALS: BP 116/67
[2017-06-29] MEDS: ENOXAPARIN SOD 40 MG/0.4 ML SYRINGE SC SCH (09:29)
[2017-06-29] MEDS: ERTAPENEM SOD INJ 1 GM in SODIUM CHL 0.9% 50 ML IV SCH (11:27)
[2017-06-29 12:00] LABS: INR 1.11 (0.9-1.15); Prothrombin Time 12.1 sec (9.37-12.3)
[2017-06-29 14:10] VITALS: BP 157/90
[2017-06-29 17:23] VITALS: BP 134/80
[2017-06-29] MEDS: BOOST PLUS 8 ounce PO SCH (21:08)
[2017-06-29] MEDS: MULTIPLE VITAMINS W/ MINERALS TAB PO SCH (21:09)
[2017-06-29] MEDS: ASCORBIC ACID 500 MG TAB PO SCH (21:10)
[2017-06-29 22:00] VITALS: BP 104/49
[2017-06-30] MEDS: SODIUM CHLORIDE 0.9% 1,000 ML IV SCH ×3 (01:06→21:06)
[2017-06-30 01:11] LABS: Urine Bacteria FEW /hpf (None Seen); Urine Blood Negative /uL (Negative); Urine Mucus FEW (None Seen); Urine Specific Gravity 1.009 (1.001-1.035); Urine WBC 23 /hpf (0 - 3)
[2017-06-30 05:00] VITALS: BP 92/47
[2017-06-30 05:13] LABS: Hemoglobin 12.1 g/dL (13.5-17.5); Neutrophils % (auto) 45.7 % (37.0-80.0); Nucleated Red Blood Cells % 0.1 %
[2017-06-30 05:15] LABS: Basophils # (auto) 0 uL; Basophils % (auto) 0.6 % (0.0-2.0); Eosinophils # (auto) 0.3 uL; Eosinophils % (auto) 4.3 % (0.0-7.0); Hematocrit 36.7 % (41.0-53.0); Lymphocytes # (auto) 2.7 uL; Lymphocytes % (auto) 35.3 % (10.0-50.0); Mean Corpuscular Hemoglobin 28.9 pg (28.0-32.0); Mean Corpuscular Hgb Conc. 32.9 g/dL (32.0-36.0); Mean Corpuscular Volume 87.8 fL (80.0-100.0); Monocytes # (auto) 1.1 uL; Monocytes % (auto) 14.1 % (0.0-12.0); Neutrophils # (auto) 3.5 uL; Platelet Count (auto) 472 10^3/uL (140-450); Red Blood Cells 4.18 10^6/uL (4.5-5.90); Red Cell Distribution Width 15.1 % (11.8-14.3); White Blood Cell 7.6 10^3/uL (4.4-10.8)
[2017-06-30 05:36] LABS: BUN/Creatinine Ratio 22.7; Calcium 8.3 mg/dL (8.5-10.1); Magnesium 2.5 mg/dL (1.6-2.6); Phosphorus 4.6 mg/dL (2.5-4.90)
[2017-06-30] MEDS: BOOST PLUS 8 ounce PO SCH ×3 (06:00→21:40)
[2017-06-30 08:00] VITALS: BP 94/45
[2017-06-30 09:00] VITALS: BP 94/45
[2017-06-30] MEDS: ERTAPENEM SOD INJ 1 GM in SODIUM CHL 0.9% 50 ML IV SCH (09:35)
[2017-06-30] MEDS: ASCORBIC ACID 500 MG TAB PO SCH ×2 (09:36→21:41)
[2017-06-30] MEDS: MULTIPLE VITAMINS W/ MINERALS TAB PO SCH ×2 (09:36→21:40)
[2017-06-30] MEDS: ACETAMINOPHEN 500 MG TAB PO PRN (09:36)
[2017-06-30] MEDS: ENOXAPARIN SOD 40 MG/0.4 ML SYRINGE SC SCH (09:37)
[2017-06-30] MEDS ORDERED: LIDOCAINE 1% HCL (LOCAL ANESTH.) INJ 20ML MDV ID ONE (11:45)
[2017-06-30 14:00] VITALS: BP 105/62
[2017-06-30] MEDS: VANCOMYCIN 1GM/250ML 250 ML IV SCH (15:30)
[2017-06-30 17:00] VITALS: BP 149/86
[2017-06-30] MEDS: MEROPENEM 1gm/20ml IVPUSH 20 ML IV SCH (18:43)
[2017-06-30] MEDS: SODIUM CHLOR 0.9% PF (SALINE LOCK) 10ML VIAL IV SCH (21:40)
[2017-06-30 22:05] VITALS: BP 112/65
[2017-07-01] MEDS: MEROPENEM 1gm/20ml IVPUSH 20 ML IV SCH ×3 (01:59→18:00)
[2017-07-01] MEDS: VANCOMYCIN 1GM/250ML 250 ML IV SCH ×2 (03:16→14:18)
[2017-07-01] MEDS: SODIUM CHLORIDE 0.9% 1,000 ML IV SCH ×2 (03:34→17:06)
[2017-07-01 05:17] VITALS: BP 122/71
[2017-07-01] MEDS: BOOST PLUS 8 ounce PO SCH ×3 (05:32→22:25)
[2017-07-01 08:30] VITALS: BP 106/75
[2017-07-01 09:00] VITALS: BP 106/75
[2017-07-01] MEDS: MULTIPLE VITAMINS W/ MINERALS TAB PO SCH ×2 (09:25→22:25)
[2017-07-01] MEDS: ASCORBIC ACID 500 MG TAB PO SCH ×2 (09:25→22:25)
[2017-07-01] MEDS: SODIUM CHLOR 0.9% PF (SALINE LOCK) 10ML VIAL IV SCH ×2 (09:25→22:25)
[2017-07-01] MEDS: ENOXAPARIN SOD 40 MG/0.4 ML SYRINGE SC SCH (09:25)
[2017-07-01 13:00] VITALS: BP 121/52
[2017-07-01 16:57] VITALS: BP 140/79
[2017-07-01 21:33] VITALS: BP 118/73
[2017-07-02] MEDS: MEROPENEM 1gm/20ml IVPUSH 20 ML IV SCH ×3 (01:55→19:00)
[2017-07-02] MEDS: SODIUM CHLORIDE 0.9% 1,000 ML IV SCH ×2 (02:55→19:00)
[2017-07-02] MEDS: VANCOMYCIN 1GM/250ML 250 ML IV SCH ×3 (02:55→19:10)
[2017-07-02] MEDS: BOOST PLUS 8 ounce PO SCH ×3 (03:02→22:00)
[2017-07-02 05:08] VITALS: BP 103/63
[2017-07-02 05:37] LABS: INR 1.04 (0.9-1.15); Partial Thromboplastin Time 19.5 sec (22.64-33.71); Prothrombin Time 11.3 sec (9.37-12.3)
[2017-07-02 05:46] LABS: Albumin 2.7 g/dL (3.4-5.0); Calcium 9.1 mg/dL (8.5-10.1); Potassium 3.8 mmol/L (3.5-5.1)
[2017-07-02 05:48] LABS: BUN/Creatinine Ratio 19.6
[2017-07-02 06:00] LABS: Bilirubin, Total 0.2 mg/dL (0.2-1.0); Total Protein 8.1 g/dL (6.4-8.2)
[2017-07-02 07:32] LABS: Basophils # (auto) 0 uL; Basophils % (auto) 0.6 % (0.0-2.0); Eosinophils # (auto) 0.3 uL; Eosinophils % (auto) 3.7 % (0.0-7.0); Hematocrit 36.5 % (41.0-53.0); Lymphocytes # (auto) 2.7 uL; Lymphocytes % (auto) 37.1 % (10.0-50.0); Mean Corpuscular Hemoglobin 28.9 pg (28.0-32.0); Mean Corpuscular Hgb Conc. 32.8 g/dL (32.0-36.0); Mean Corpuscular Volume 87.9 fL (80.0-100.0); Monocytes # (auto) 0.8 uL; Neutrophils # (auto) 3.5 uL; Neutrophils % (auto) 47.6 % (37.0-80.0); Nucleated Red Blood Cells % 0.1 %; Platelet Count (auto) 410 10^3/uL (140-450); Red Blood Cells 4.15 10^6/uL (4.5-5.90); Red Cell Distribution Width 14.9 % (11.8-14.3); White Blood Cell 7.3 10^3/uL (4.4-10.8)
[2017-07-02 09:17] VITALS: BP 109/59
[2017-07-02] MEDS: SODIUM CHLOR 0.9% PF (SALINE LOCK) 10ML VIAL IV SCH ×2 (10:00→21:24)
[2017-07-02] MEDS: ASCORBIC ACID 500 MG TAB PO SCH ×2 (10:00→21:24)
[2017-07-02] MEDS: MULTIPLE VITAMINS W/ MINERALS TAB PO SCH ×2 (10:00→21:23)
[2017-07-02] MEDS: ENOXAPARIN SOD 40 MG/0.4 ML SYRINGE SC SCH (10:06)
[2017-07-02 10:57] LABS: Calcium 7.9 mg/dL (8.5-10.1); Potassium 3.6 mmol/L (3.5-5.1)
[2017-07-02 13:00] VITALS: BP 119/89
[2017-07-02] MEDS ORDERED: SUCCINYLCHOLINE CHLORIDE 20 MG/ML 10ML VIAL IV ONE (17:04)
[2017-07-02 21:30] VITALS: BP 145/88
[2017-07-03] MEDS: SODIUM CHLORIDE 0.9% 1,000 ML IV SCH ×2 (00:11→13:20)
[2017-07-03] MEDS: MEROPENEM 1gm/20ml IVPUSH 20 ML IV SCH ×2 (01:52→13:21)
[2017-07-03] MEDS: VANCOMYCIN 1GM/250ML 250 ML IV SCH ×2 (03:00→03:04)
[2017-07-03 03:02] LABS: Basophils # (auto) 0.1 uL; Eosinophils # (auto) 0.3 uL; Eosinophils % (auto) 3.5 % (0.0-7.0); Hematocrit 34.9 % (41.0-53.0); Hemoglobin 11.6 g/dL (13.5-17.5); Lymphocytes # (auto) 2.8 uL; Lymphocytes % (auto) 35.4 % (10.0-50.0); Mean Corpuscular Hgb Conc. 33.2 g/dL (32.0-36.0); Mean Corpuscular Volume 87.3 fL (80.0-100.0); Monocytes # (auto) 1.1 uL; Monocytes % (auto) 13.3 % (0.0-12.0); Neutrophils # (auto) 3.7 uL; Neutrophils % (auto) 46.8 % (37.0-80.0); Nucleated Red Blood Cells % 0.1 %; Platelet Count (auto) 445 10^3/uL (140-450); Red Blood Cells 3.99 10^6/uL (4.5-5.90); Red Cell Distribution Width 14.9 % (11.8-14.3)
[2017-07-03 03:20] LABS: BUN/Creatinine Ratio 26.4; Calcium 8.6 mg/dL (8.5-10.1); Magnesium 2.3 mg/dL (1.6-2.6); Potassium 3.8 mmol/L (3.5-5.1)
[2017-07-03 05:00] VITALS: BP 140/72
[2017-07-03] MEDS: BOOST PLUS 8 ounce PO SCH (05:54)
[2017-07-03 08:00] VITALS: BP 107/68
[2017-07-03] MEDS ORDERED: fentaNYL CITRATE 100 MCG/2 ML VL ONE (08:55)
[2017-07-03] MEDS ORDERED: MIDAZOLAM HCL 1MG/1ML-2 ML VIAL ONE (08:55)
[2017-07-03] MEDS ORDERED: PROPOFOL 10 MG/ML 20 ML IV ONE ×2 (08:55→10:28)
[2017-07-03] MEDS ORDERED: SODIUM CHLORIDE LOCK 10 ML ONE (08:55)
[2017-07-03] MEDS ORDERED: LEVOFLOXACIN 500MG 100 ML IV ONE (09:28)
[2017-07-03] MEDS ORDERED: CLINDAMYCIN 900MG IV 50 ML IV ONE (09:28)
[2017-07-03] MEDS ORDERED: SILVER SULFADIAZINE 1 % TOPICAL CREAM 50GM TOP ONE ×2 (10:11→10:29)
[2017-07-03] MEDS ORDERED: LIDOCAINE 1% HCL (LOCAL ANESTH.) INJ 20ML MDV ONE ×2 (10:29→10:35)
[2017-07-03] MEDS ORDERED: HYDROmorphone HCL 2 MG/ML VL IV PRN (11:30)
[2017-07-03] MEDS ORDERED: ONDANSETRON HCL 4 MG/2 ML VIAL IV ONE (11:30)
[2017-07-03] MEDS ORDERED: VANCOMYCIN 1GM/250ML 250 ML IV SCH (13:00)
[2017-07-03] MEDS: ENOXAPARIN SOD 40 MG/0.4 ML SYRINGE SC SCH (13:19)
[2017-07-03] MEDS: ASCORBIC ACID 500 MG TAB PO SCH (13:20)
[2017-07-03] MEDS: MULTIPLE VITAMINS W/ MINERALS TAB PO SCH (13:20)
[2017-07-03] MEDS: SODIUM CHLOR 0.9% PF (SALINE LOCK) 10ML VIAL IV SCH (13:21)
[2017-07-03 16:14] VITALS: BP 114/67
== END 2017-07-03 16:40 | disposition home health service (06) | DRG 711 ==
LOC: EDBD 00:23 → ER 00:23 → OVERFLOW 00:24 → CENTRAL 10:28
PROVIDERS: ADMIT Internal Medicine; ATTEND Internal Medicine
PROC: 0KBW0ZZ Excision of Left Foot Muscle, Open Approach (ICD-10-PCS; 2017-07-03)
PROC: 0KBP0ZZ Excision of Left Hip Muscle, Open Approach (ICD-10-PCS; principal; 2017-07-03 09:31)
DX: T81.4XXA Infection following a procedure, initial encounter (principal); A41.51 Sepsis due to Escherichia coli [E. coli]; A41.52 Sepsis due to Pseudomonas; E43 Unspecified severe protein-calorie malnutrition; G82.50 Quadriplegia, unspecified; L89.214 Pressure ulcer of right hip, stage 4; L89.159 Pressure ulcer of sacral region, unspecified stage; L89.329 Pressure ulcer of left buttock, unspecified stage; E11.622 Type 2 diabetes mellitus with other skin ulcer; B96.89 Other specified bacterial agents as the cause of diseases classified elsewhere; L03.116 Cellulitis of left lower limb; N30.00 Acute cystitis without hematuria; F17.210 Nicotine dependence, cigarettes, uncomplicated; L98.499 Non-pressure chronic ulcer of skin of other sites with unspecified severity; N31.9 Neuromuscular dysfunction of bladder, unspecified; Z83.3 Family history of diabetes mellitus; Z91.19 Patient's noncompliance with other medical treatment and regimen; Z68.1 Body mass index [BMI] 19.9 or less, adult; Z88.0 Allergy status to penicillin; L89.892 Pressure ulcer of other site, stage 2
CPT/HCPCS: 36415; 36569; 36600; 51702; 71045; 80048; 80053; 80202; 80307; 81001; 82805; 82962; 83605; 83735; 84100; 84132; 85025; 85610; 85652; 85730; 87040; 87077; 87081; 87086; 87088; 87186; 87205; 93306; 94644; 96365; 96375; 96379; J0330; J0610; J1335; J1815; J1956; J2001; J2250; J2704; J3490

== ENCOUNTER 2017-09-09 20:15 | Inpatient (IN) | payer MEDICAID ==
[~2017-09-09] VITALS: Ht 170.2 cm; Wt 75.2 kg
[2017-09-09 22:29] LABS: Hemoglobin 10.9 g/dL (13.5-17.5); Mean Corpuscular Hemoglobin 26.8 pg (28.0-32.0)
[2017-09-09 22:31] LABS: Hematocrit 32.9 % (41.0-53.0); Mean Corpuscular Volume 81.4 fL (80.0-100.0); Platelet Count (auto) 628 10^3/uL (140-450); Red Blood Cells 4.05 10^6/uL (4.5-5.90); Red Cell Distribution Width 15.3 % (11.8-14.3); White Blood Cell 23.2 10^3/uL (4.4-10.8)
[2017-09-09 22:36] LABS: Basophils % (manual) 0 (0.0-2.0); Blast Cells 0; Metamyelocytes % 0; Myelocytes % 0; Promyelocytes % 0; Reactive Lymphocytes 0
[2017-09-09 22:45] LABS: Albumin 2.3 g/dL (3.4-5.0); Calcium 8.2 mg/dL (8.5-10.1); Potassium 3.2 mmol/L (3.5-5.1)
[2017-09-09 22:47] LABS: Bilirubin, Total 0.6 mg/dL (0.2-1.0); Total Protein 8.6 g/dL (6.4-8.2)
[2017-09-09 22:50] LABS: Lactic Acid w/Reflex 2.7 mmol/L (0.4-2.0)
[2017-09-09] MEDS ORDERED: SODIUM CHLORIDE 0.9% 950 ML IV ONE (23:15)
[2017-09-09] MEDS ORDERED: cefTRIAXone 1GM/10ml IVPUSH 10 ML IV ONE (23:15)
[2017-09-09] MEDS ORDERED: CLINDAMYCIN 900MG IV 50 ML IV ONE (23:15)
[2017-09-09] MEDS ORDERED: ONDANSETRON HCL 4 MG/2 ML VIAL IV ONE (23:15)
[2017-09-09] MEDS ORDERED: DOXYCYCLINE HYC IV ONE (23:15)
[2017-09-09 23:23] LABS: Band Neutrophils % (manual) 3; Eosinophils % (manual) 1 (0-7); Lymphocytes % (manual) 16 (10.0-50.0); Monocytes % (manual) 18 (0-12)
[2017-09-10] MEDS ORDERED: HYDROcodone-ACET 5/325MG TAB PO PRN (02:30)
[2017-09-10] MEDS: SODIUM CHLORIDE 0.9% 1,000 ML IV SCH ×3 (02:30→21:35)
[2017-09-10] MEDS ORDERED: ONDANSETRON HCL 4 MG/2 ML VIAL IV PRN (02:30)
[2017-09-10] MEDS ORDERED: MORPHINE SULFATE 8mg/ml INJ SDV IV PRN ×2 (02:30)
[2017-09-10] MEDS ORDERED: SODIUM CHLORIDE 0.9% 500 ML IV ONE (02:30)
[2017-09-10] MEDS ORDERED: NITROGLYCERIN 0.4 MG SL TAB SL PRN (02:30)
[2017-09-10 03:59] LABS: Urine Bacteria MANY /hpf (None Seen); Urine Blood 1+ /uL (Negative); Urine Mucus FEW (None Seen); Urine Specific Gravity 1.022 (1.001-1.035); Urine WBC 170 /hpf (0 - 3); Urine WBC Clumps PRESENT /hpf (None Seen)
[2017-09-10] MEDS ORDERED: CLINDAMYCIN 600MG IV 50 ML IV SCH (06:00)
[2017-09-10] MEDS: MEROPENEM 500mg/10ml IVPUSH 10 ML IV SCH ×3 (06:26→21:33)
[2017-09-10] MEDS: FAMOTIDINE 20 MG TAB PO SCH ×2 (09:18→21:34)
[2017-09-10] MEDS: ENOXAPARIN SOD 30 MG/0.3 ML SYRINGE SC SCH (09:18)
[2017-09-10] MEDS ORDERED: ENOXAPARIN SOD 40 MG/0.4 ML SYRINGE SC SCH (10:00)
[2017-09-10] MEDS ORDERED: POTASSIUM CHL 10% (20 MEQ/15ML) 15ml ORAL SOLN GT ONE (13:00)
[2017-09-10] MEDS ORDERED: VANCOMYCIN PER PHARMACY 0 MG IV SCH (13:15)
[2017-09-10] MEDS ORDERED: POTASSIUM CHL 20 Meq TABLET PO ONE (15:00)
[2017-09-10 15:59] VITALS: BP 122/52
[2017-09-10] MEDS ORDERED: VANCOMYCIN 750 MG in D5W 5% 250 ML IV SCH (17:00)
[2017-09-10] MEDS: BOOST PLUS 8 ounce PO SCH (18:00)
[2017-09-10 20:00] VITALS: BP 130/70
[2017-09-10] MEDS: ACETAMINOPHEN 325 MG TAB PO PRN (20:56)
[2017-09-10] MEDS: ASCORBIC ACID 500 MG TAB PO SCH (21:34)
[2017-09-10 22:00] VITALS: BP 130/70
[2017-09-11 05:00] VITALS: BP 108/54
[2017-09-11 05:43] LABS: Basophils # (auto) 0.1 uL; Eosinophils # (auto) 0.2 uL; Hemoglobin 9.1 g/dL (13.5-17.5); Lymphocytes # (auto) 2.5 uL; Mean Corpuscular Hemoglobin 26.8 pg (28.0-32.0); Monocytes # (auto) 1.8 uL; Neutrophils # (auto) 10.4 uL; White Blood Cell 15.1 10^3/uL (4.4-10.8)
[2017-09-11 05:46] LABS: Basophils % (auto) 0.8 % (0.0-2.0); Eosinophils % (auto) 1.3 % (0.0-7.0); Lymphocytes % (auto) 16.8 % (10.0-50.0); Mean Corpuscular Hgb Conc. 32.5 g/dL (32.0-36.0); Mean Corpuscular Volume 82.5 fL (80.0-100.0); Neutrophils % (auto) 69.1 % (37.0-80.0); Platelet Count (auto) 509 10^3/uL (140-450); Red Cell Distribution Width 14.9 % (11.8-14.3)
[2017-09-11 05:48] LABS: INR 1.36 (0.9-1.15); Partial Thromboplastin Time 30.3 sec (22.64-33.71); Prothrombin Time 14.9 sec (9.37-12.3)
[2017-09-11 06:01] LABS: Potassium 3.5 mmol/L (3.5-5.1)
[2017-09-11] MEDS: MEROPENEM 500mg/10ml IVPUSH 10 ML IV SCH ×3 (06:07→22:00)
[2017-09-11 06:10] LABS: Albumin 1.8 g/dL (3.4-5.0); BUN/Creatinine Ratio 15.2; Bilirubin, Total 0.4 mg/dL (0.2-1.0); Calcium 8.1 mg/dL (8.5-10.1); Total Protein 6.8 g/dL (6.4-8.2)
[2017-09-11 08:58] VITALS: BP 124/74
[2017-09-11] MEDS ORDERED: POTASSIUM CHL 10% (20 MEQ/15ML) 15ml ORAL SOLN GT SCH (10:00)
[2017-09-11] MEDS: VANCOMYCIN 750 MG in D5W 5% 250 ML IV SCH ×2 (10:26→22:00)
[2017-09-11] MEDS: ENOXAPARIN SOD 30 MG/0.3 ML SYRINGE SC SCH (10:27)
[2017-09-11] MEDS: FAMOTIDINE 20 MG TAB PO SCH ×2 (10:27→22:00)
[2017-09-11] MEDS: ASCORBIC ACID 500 MG TAB PO SCH ×3 (10:27→22:00)
[2017-09-11] MEDS: POTASSIUM CHL 20 Meq TABLET PO SCH (10:27)
[2017-09-11] MEDS: BOOST PLUS 8 ounce PO SCH ×3 (10:29→18:15)
[2017-09-11] MEDS: SODIUM CHLORIDE 0.9% 1,000 ML IV SCH ×2 (10:29→22:55)
[2017-09-11] MEDS ORDERED: POTASSIUM CHL 20 Meq TABLET PO ONE (11:30)
[2017-09-11 13:00] VITALS: BP 98/55
[2017-09-11 16:43] VITALS: BP 127/63
[2017-09-11] MEDS: PRO-STAT 64 30ML PO SCH ×2 (18:00→18:15)
[2017-09-11] MEDS: MULTIPLE VITAMIN TAB PO SCH (18:13)
[2017-09-11 20:00] VITALS: BP 109/55
[2017-09-11 22:00] VITALS: BP 109/55
[2017-09-12] MEDS: ACETAMINOPHEN 325 MG TAB PO PRN (02:38)
[2017-09-12 04:59] VITALS: BP 105/61
[2017-09-12 05:45] LABS: Red Cell Distribution Width 14.9 % (11.8-14.3)
[2017-09-12 05:47] LABS: Hematocrit 29.6 % (41.0-53.0); Hemoglobin 9.6 g/dL (13.5-17.5); Mean Corpuscular Hemoglobin 26.9 pg (28.0-32.0); Mean Corpuscular Hgb Conc. 32.5 g/dL (32.0-36.0); Mean Corpuscular Volume 82.8 fL (80.0-100.0); Platelet Count (auto) 566 10^3/uL (140-450); Red Blood Cells 3.58 10^6/uL (4.5-5.90); White Blood Cell 15.8 10^3/uL (4.4-10.8)
[2017-09-12] MEDS: MEROPENEM 500mg/10ml IVPUSH 10 ML IV SCH ×3 (05:47→22:26)
[2017-09-12 05:54] LABS: Band Neutrophils % (manual) 0; Basophils % (manual) 0 (0.0-2.0); Blast Cells 0; Eosinophils % (manual) 0 (0-7); Metamyelocytes % 0; Myelocytes % 0; Promyelocytes % 0; Reactive Lymphocytes 0
[2017-09-12 06:12] LABS: BUN/Creatinine Ratio 9.1; Calcium 8.1 mg/dL (8.5-10.1); Potassium 3.5 mmol/L (3.5-5.1)
[2017-09-12 06:20] LABS: Lymphocytes % (manual) 19 (10.0-50.0); Monocytes % (manual) 11 (0-12)
[2017-09-12] MEDS: PRO-STAT 64 30ML PO SCH ×3 (08:00→18:08)
[2017-09-12] MEDS: BOOST PLUS 8 ounce PO SCH ×3 (08:00→18:08)
[2017-09-12 08:23] VITALS: BP 113/56
[2017-09-12] MEDS: MULTIPLE VITAMIN TAB PO SCH (09:33)
[2017-09-12] MEDS: ASCORBIC ACID 500 MG TAB PO SCH ×4 (09:33→22:26)
[2017-09-12] MEDS: POTASSIUM CHL 20 Meq TABLET PO SCH (09:33)
[2017-09-12] MEDS: FAMOTIDINE 20 MG TAB PO SCH ×2 (09:33→22:26)
[2017-09-12] MEDS: ENOXAPARIN SOD 30 MG/0.3 ML SYRINGE SC SCH (09:34)
[2017-09-12] MEDS: VANCOMYCIN 750 MG in D5W 5% 250 ML IV SCH ×2 (10:48→22:33)
[2017-09-12] MEDS: SODIUM CHLORIDE 0.9% 1,000 ML IV SCH (12:58)
[2017-09-12] MEDS ORDERED: MIDAZOLAM HCL 1MG/1ML-2 ML VIAL ONE (13:09)
[2017-09-12] MEDS ORDERED: fentaNYL CITRATE 100 MCG/2 ML VL ONE (13:09)
[2017-09-12] MEDS ORDERED: PROPOFOL 10 MG/ML 20 ML IV ONE (13:15)
[2017-09-12] MEDS ORDERED: DEXAMETHASONE SOD PHOS 10MG/1ML VIAL INJ ONE (13:15)
[2017-09-12] MEDS ORDERED: ONDANSETRON HCL 4 MG/2 ML VIAL IV ONE (13:30)
[2017-09-12] MEDS ORDERED: LABETALOL HCL 5 MG/ML 4ML SYRINGE IV PRN (13:30)
[2017-09-12] MEDS ORDERED: ePHEDrine SULFATE 50 MG/ML AMP IV PRN (13:30)
[2017-09-12] MEDS ORDERED: MORPHINE SULFATE 8mg/ml INJ SDV IV PRN (13:30)
[2017-09-12] MEDS ORDERED: KETOROLAC TROMETH 30 MG/ML 1ML VIAL IV ONE (13:30)
[2017-09-12] MEDS ORDERED: MIDAZOLAM HCL 1MG/1ML-2 ML VIAL IV PRN (13:30)
[2017-09-12] MEDS ORDERED: MORPHINE SULFATE 8mg/ml INJ SDV IV ONE (14:00)
[2017-09-12 17:00] VITALS: BP 128/70
[2017-09-12 22:00] VITALS: BP 140/89
[2017-09-13] MEDS: SODIUM CHLORIDE 0.9% 1,000 ML IV SCH (01:42)
[2017-09-13 05:00] VITALS: BP 135/87
[2017-09-13] MEDS: MEROPENEM 500mg/10ml IVPUSH 10 ML IV SCH ×3 (06:31→22:05)
[2017-09-13] MEDS: PRO-STAT 64 30ML PO SCH ×2 (08:00→18:00)
[2017-09-13] MEDS: BOOST PLUS 8 ounce PO SCH ×3 (08:00→18:08)
[2017-09-13 08:36] VITALS: BP 137/100
[2017-09-13] MEDS: ASCORBIC ACID 500 MG TAB PO SCH ×4 (09:35→22:06)
[2017-09-13] MEDS: POTASSIUM CHL 20 Meq TABLET PO SCH (09:35)
[2017-09-13] MEDS: MULTIPLE VITAMIN TAB PO SCH (09:36)
[2017-09-13] MEDS: ENOXAPARIN SOD 30 MG/0.3 ML SYRINGE SC SCH (09:36)
[2017-09-13] MEDS: FAMOTIDINE 20 MG TAB PO SCH ×2 (09:36→22:05)
[2017-09-13] MEDS ORDERED: VANCOMYCIN 1,250 MG in D5W 5% 250 ML IV SCH (10:00)
[2017-09-13 11:43] VITALS: BP 129/76
[2017-09-13 16:33] VITALS: BP 133/82
[2017-09-13] MEDS: VANCOMYCIN 1,250 MG in SODIUM CHL 0.9% 250 ML IV SCH (22:05)
[2017-09-13 23:15] VITALS: BP 136/93
[2017-09-14 05:44] VITALS: BP 138/98
[2017-09-14 05:54] LABS: Basophils # (auto) 0.1 uL; Eosinophils # (auto) 0.1 uL; Hemoglobin 9.4 g/dL (13.5-17.5); Neutrophils # (auto) 5.5 uL; Nucleated Red Blood Cells % 0.1 %
[2017-09-14 06:05] LABS: Basophils % (auto) 0.8 % (0.0-2.0); Hematocrit 30.1 % (41.0-53.0); Lymphocytes # (auto) 3.3 uL; Lymphocytes % (auto) 32.9 % (10.0-50.0); Mean Corpuscular Hemoglobin 26.4 pg (28.0-32.0); Mean Corpuscular Hgb Conc. 31.2 g/dL (32.0-36.0); Mean Corpuscular Volume 84.8 fL (80.0-100.0); Monocytes % (auto) 10.1 % (0.0-12.0); Neutrophils % (auto) 55.2 % (37.0-80.0); Platelet Count (auto) 587 10^3/uL (140-450); Red Blood Cells 3.55 10^6/uL (4.5-5.90); Red Cell Distribution Width 15.1 % (11.8-14.3); White Blood Cell 10.1 10^3/uL (4.4-10.8)
[2017-09-14 06:20] LABS: Albumin 1.9 g/dL (3.4-5.0); BUN/Creatinine Ratio 18.9; Bilirubin, Total 0.3 mg/dL (0.2-1.0); Calcium 8.2 mg/dL (8.5-10.1); Potassium 4.1 mmol/L (3.5-5.1); Total Protein 7.3 g/dL (6.4-8.2)
[2017-09-14] MEDS: MEROPENEM 500mg/10ml IVPUSH 10 ML IV SCH ×3 (07:48→22:00)
[2017-09-14] MEDS: BOOST PLUS 8 ounce PO SCH ×3 (08:00→18:58)
[2017-09-14] MEDS: PRO-STAT 64 30ML PO SCH ×2 (08:00→18:00)
[2017-09-14] MEDS: ASCORBIC ACID 500 MG TAB PO SCH ×4 (10:00→22:00)
[2017-09-14] MEDS: VANCOMYCIN 1,250 MG in SODIUM CHL 0.9% 250 ML IV SCH (10:13)
[2017-09-14] MEDS: POTASSIUM CHL 20 Meq TABLET PO SCH (10:13)
[2017-09-14] MEDS: MULTIPLE VITAMIN TAB PO SCH (10:13)
[2017-09-14 10:14] VITALS: BP 131/91
[2017-09-14] MEDS: FAMOTIDINE 20 MG TAB PO SCH ×2 (10:14→22:00)
[2017-09-14] MEDS: ENOXAPARIN SOD 30 MG/0.3 ML SYRINGE SC SCH (10:14)
[2017-09-14 13:17] VITALS: BP 109/63
[2017-09-14] MEDS ORDERED: LIDOCAINE 1% (LOCAL ANESTH.) PF 5ml SDV ID ONE (16:15)
[2017-09-14 17:00] VITALS: BP 100/62
[2017-09-14 22:00] VITALS: BP 143/85
[2017-09-14] MEDS: VANCOMYCIN 1GM/250ML 250 ML IV SCH (22:00)
[2017-09-14] MEDS: SODIUM CHLOR 0.9% PF (SALINE LOCK) 10ML VIAL/SYR IV SCH (22:00)
[2017-09-15 04:36] VITALS: BP 109/50
[2017-09-15] MEDS: MEROPENEM 500mg/10ml IVPUSH 10 ML IV SCH ×3 (05:47→22:00)
[2017-09-15] MEDS: VANCOMYCIN 1GM/250ML 250 ML IV SCH ×3 (05:51→23:27)
[2017-09-15 05:52] LABS: White Blood Cell 10.8 10^3/uL (4.4-10.8)
[2017-09-15 05:55] LABS: Basophils # (auto) 0.1 uL; Basophils % (auto) 0.6 % (0.0-2.0); Eosinophils # (auto) 0.2 uL; Eosinophils % (auto) 1.6 % (0.0-7.0); Hematocrit 32.8 % (41.0-53.0); Hemoglobin 10.9 g/dL (13.5-17.5); Lymphocytes # (auto) 2.8 uL; Lymphocytes % (auto) 26.4 % (10.0-50.0); Mean Corpuscular Hemoglobin 27.3 pg (28.0-32.0); Mean Corpuscular Hgb Conc. 33.1 g/dL (32.0-36.0); Mean Corpuscular Volume 82.4 fL (80.0-100.0); Monocytes # (auto) 1.1 uL; Monocytes % (auto) 10.6 % (0.0-12.0); Neutrophils # (auto) 6.5 uL; Neutrophils % (auto) 60.8 % (37.0-80.0); Red Blood Cells 3.99 10^6/uL (4.5-5.90); Red Cell Distribution Width 15.3 % (11.8-14.3)
[2017-09-15 06:01] LABS: Platelet Count (auto) 757 10^3/uL (140-450)
[2017-09-15 06:10] LABS: Albumin 2.2 g/dL (3.4-5.0); BUN/Creatinine Ratio 18.6; Bilirubin, Total 0.2 mg/dL (0.2-1.0); Calcium 8.4 mg/dL (8.5-10.1); Potassium 3.7 mmol/L (3.5-5.1)
[2017-09-15] MEDS: PRO-STAT 64 30ML PO SCH ×2 (08:00→18:00)
[2017-09-15] MEDS: BOOST PLUS 8 ounce PO SCH ×3 (08:00→18:32)
[2017-09-15 08:20] VITALS: BP 126/70
[2017-09-15] MEDS: ASCORBIC ACID 500 MG TAB PO SCH ×4 (10:00→22:00)
[2017-09-15] MEDS: SODIUM CHLOR 0.9% PF (SALINE LOCK) 10ML VIAL/SYR IV SCH ×2 (10:59→22:00)
[2017-09-15] MEDS: POTASSIUM CHL 20 Meq TABLET PO SCH (10:59)
[2017-09-15] MEDS: MULTIPLE VITAMIN TAB PO SCH (10:59)
[2017-09-15] MEDS: FAMOTIDINE 20 MG TAB PO SCH ×2 (10:59→22:00)
[2017-09-15] MEDS: ENOXAPARIN SOD 30 MG/0.3 ML SYRINGE SC SCH (11:00)
[2017-09-15 12:40] VITALS: BP 116/63
[2017-09-15 16:32] VITALS: BP 116/58
[2017-09-15 22:00] VITALS: BP 97/59
[2017-09-16 05:00] VITALS: BP 110/60
[2017-09-16] MEDS: MEROPENEM 500mg/10ml IVPUSH 10 ML IV SCH ×2 (06:00→13:31)
[2017-09-16] MEDS: VANCOMYCIN 1GM/250ML 250 ML IV SCH ×2 (06:00→13:31)
[2017-09-16 06:48] LABS: BUN/Creatinine Ratio 25.5; Calcium 8.4 mg/dL (8.5-10.1); Potassium 4.3 mmol/L (3.5-5.1)
[2017-09-16 07:21] LABS: Hemoglobin 10.4 g/dL (13.5-17.5); White Blood Cell 16.2 10^3/uL (4.4-10.8)
[2017-09-16 07:24] LABS: Hematocrit 32.3 % (41.0-53.0); Mean Corpuscular Hemoglobin 26.7 pg (28.0-32.0); Mean Corpuscular Hgb Conc. 32.2 g/dL (32.0-36.0); Platelet Count (auto) 429 10^3/uL (140-450); Red Blood Cells 3.89 10^6/uL (4.5-5.90); Red Cell Distribution Width 15.4 % (11.8-14.3)
[2017-09-16] MEDS: PRO-STAT 64 30ML PO SCH ×2 (08:00→18:00)
[2017-09-16 08:06] VITALS: BP 119/69
[2017-09-16] MEDS: BOOST PLUS 8 ounce PO SCH ×3 (08:30→18:30)
[2017-09-16 09:03] LABS: Basophils % (manual) 0 (0.0-2.0); Blast Cells 0; Metamyelocytes % 0; Myelocytes % 0; Promyelocytes % 0; Reactive Lymphocytes 0
[2017-09-16 09:04] LABS: Band Neutrophils % (manual) 5; Eosinophils % (manual) 1 (0-7); Lymphocytes % (manual) 30 (10.0-50.0); Monocytes % (manual) 8 (0-12)
[2017-09-16] MEDS: POTASSIUM CHL 20 Meq TABLET PO SCH (09:47)
[2017-09-16] MEDS: ASCORBIC ACID 500 MG TAB PO SCH ×2 (09:47→09:55)
[2017-09-16] MEDS: MULTIPLE VITAMIN TAB PO SCH (09:47)
[2017-09-16] MEDS: ENOXAPARIN SOD 30 MG/0.3 ML SYRINGE SC SCH (09:47)
[2017-09-16] MEDS: FAMOTIDINE 20 MG TAB PO SCH (09:47)
[2017-09-16] MEDS: SODIUM CHLOR 0.9% PF (SALINE LOCK) 10ML VIAL/SYR IV SCH ×2 (09:48→22:00)
[2017-09-16 12:30] VITALS: BP 116/60
[2017-09-16 16:53] VITALS: BP 150/73
[2017-09-16 22:06] VITALS: BP 93/51
[2017-09-17] MEDS: VANCOMYCIN 1GM/250ML 250 ML IV SCH ×4 (00:09→22:03)
[2017-09-17] MEDS: MEROPENEM 500mg/10ml IVPUSH 10 ML IV SCH ×4 (00:09→22:03)
[2017-09-17] MEDS: ASCORBIC ACID 500 MG TAB PO SCH ×6 (00:09→22:04)
[2017-09-17] MEDS: FAMOTIDINE 20 MG TAB PO SCH ×3 (00:09→22:04)
[2017-09-17 04:40] VITALS: BP 94/50
[2017-09-17 07:06] LABS: Hemoglobin 9.9 g/dL (13.5-17.5)
[2017-09-17 07:09] LABS: Hematocrit 31.8 % (41.0-53.0); Mean Corpuscular Hemoglobin 26.5 pg (28.0-32.0); Mean Corpuscular Hgb Conc. 31.1 g/dL (32.0-36.0); Mean Corpuscular Volume 85.3 fL (80.0-100.0); Red Blood Cells 3.73 10^6/uL (4.5-5.90); Red Cell Distribution Width 15.9 % (11.8-14.3); White Blood Cell 14.3 10^3/uL (4.4-10.8)
[2017-09-17 07:37] LABS: BUN/Creatinine Ratio 32.5; Calcium 8.4 mg/dL (8.5-10.1); Potassium 4.2 mmol/L (3.5-5.1)
[2017-09-17] MEDS: PRO-STAT 64 30ML PO SCH ×2 (08:00→18:00)
[2017-09-17 08:15] LABS: Platelet Count (auto) 800 10^3/uL (140-450)
[2017-09-17 08:16] LABS: Band Neutrophils % (manual) 0; Basophils % (manual) 0 (0.0-2.0); Blast Cells 0; Metamyelocytes % 0; Myelocytes % 0; Promyelocytes % 0; Reactive Lymphocytes 0
[2017-09-17 08:40] VITALS: BP 139/95
[2017-09-17] MEDS ORDERED: MORPHINE SULFATE 8mg/ml INJ SDV IV PRN (09:45)
[2017-09-17] MEDS: SODIUM CHLORIDE 0.9% 1,000 ML IV SCH ×2 (09:45→22:03)
[2017-09-17] MEDS: BOOST PLUS 8 ounce PO SCH ×3 (09:53→18:11)
[2017-09-17] MEDS: SODIUM CHLOR 0.9% PF (SALINE LOCK) 10ML VIAL/SYR IV SCH ×2 (09:54→22:04)
[2017-09-17] MEDS: POTASSIUM CHL 20 Meq TABLET PO SCH (09:55)
[2017-09-17] MEDS: MULTIPLE VITAMIN TAB PO SCH (09:55)
[2017-09-17] MEDS: ENOXAPARIN SOD 30 MG/0.3 ML SYRINGE SC SCH (09:56)
[2017-09-17 11:51] VITALS: BP 113/68
[2017-09-17 12:27] LABS: Eosinophils % (manual) 2 (0-7); Lymphocytes % (manual) 38 (10.0-50.0); Monocytes % (manual) 6 (0-12)
[2017-09-17 17:11] VITALS: BP 103/50
[2017-09-17 21:51] VITALS: BP 125/66
[2017-09-18 05:00] VITALS: BP 96/48
[2017-09-18] MEDS: VANCOMYCIN 1GM/250ML 250 ML IV SCH (05:49)
[2017-09-18] MEDS: SODIUM CHLORIDE 0.9% 1,000 ML IV SCH ×2 (05:49→15:45)
[2017-09-18] MEDS: MEROPENEM 500mg/10ml IVPUSH 10 ML IV SCH ×3 (05:50→21:54)
[2017-09-18 05:59] LABS: Basophils # (auto) 0.1 uL; Basophils % (auto) 0.8 % (0.0-2.0); Eosinophils # (auto) 0.3 uL; Monocytes # (auto) 1.4 uL; Nucleated Red Blood Cells % 0.1 %; Red Cell Distribution Width 15.7 % (11.8-14.3); White Blood Cell 11.2 10^3/uL (4.4-10.8)
[2017-09-18 06:01] LABS: Eosinophils % (auto) 2.4 % (0.0-7.0); Hematocrit 30.8 % (41.0-53.0); Hemoglobin 10.1 g/dL (13.5-17.5); Lymphocytes # (auto) 2.7 uL; Lymphocytes % (auto) 24.3 % (10.0-50.0); Mean Corpuscular Hemoglobin 27.1 pg (28.0-32.0); Mean Corpuscular Hgb Conc. 32.9 g/dL (32.0-36.0); Mean Corpuscular Volume 82.3 fL (80.0-100.0); Monocytes % (auto) 12.6 % (0.0-12.0); Neutrophils # (auto) 6.7 uL; Neutrophils % (auto) 59.9 % (37.0-80.0); Platelet Count (auto) 632 10^3/uL (140-450); Red Blood Cells 3.74 10^6/uL (4.5-5.90)
[2017-09-18 06:08] LABS: INR 1.05 (0.9-1.15); Partial Thromboplastin Time 28.7 sec (22.64-33.71); Prothrombin Time 11.4 sec (9.37-12.3)
[2017-09-18 06:25] LABS: BUN/Creatinine Ratio 30.2; Calcium 8.8 mg/dL (8.5-10.1); Potassium 4.2 mmol/L (3.5-5.1)
[2017-09-18 08:00] VITALS: BP 83/48
[2017-09-18] MEDS: BOOST PLUS 8 ounce PO SCH ×3 (08:00→17:56)
[2017-09-18] MEDS: PRO-STAT 64 30ML PO SCH ×2 (08:00→17:55)
[2017-09-18] MEDS: HYDROcodone-ACET 5/325MG TAB PO PRN ×2 (09:05→18:24)
[2017-09-18] MEDS ORDERED: VANCOMYCIN 1GM/250ML 250 ML IV SCH (10:00)
[2017-09-18 12:00] VITALS: BP 88/57
[2017-09-18] MEDS: SODIUM CHLOR 0.9% PF (SALINE LOCK) 10ML VIAL/SYR IV SCH ×2 (12:49→21:55)
[2017-09-18] MEDS ORDERED: LIDOCAINE 1% (LOCAL ANESTH.) PF 5ml SDV ONE (14:38)
[2017-09-18] MEDS ORDERED: PROPOFOL 10 MG/ML 20 ML IV ONE (14:39)
[2017-09-18] MEDS ORDERED: LEVOFLOXACIN 500MG 100 ML IV ONE (14:59)
[2017-09-18] MEDS ORDERED: MIDAZOLAM HCL 1MG/1ML-2 ML VIAL ONE (15:04)
[2017-09-18] MEDS ORDERED: NALOXONE HCL 0.4 MG/ML VIAL IV PRN (15:15)
[2017-09-18] MEDS ORDERED: MORPHINE SULFATE 8mg/ml INJ SDV IV PRN (15:15)
[2017-09-18] MEDS ORDERED: ONDANSETRON HCL 4 MG/2 ML VIAL IV ONE (15:15)
[2017-09-18] MEDS ORDERED: ePHEDrine SULFATE 50 MG/ML AMP ONE (15:23)
[2017-09-18] MEDS ORDERED: BUPIVACAINE W/ EPINEPH 0.25% INJ 50ML MDV ONE (15:23)
[2017-09-18] MEDS ORDERED: BUPIVACAINE 0.25% INJ 50ML VIAL ONE (15:23)
[2017-09-18] MEDS ORDERED: BUPIVACAINE HCL 0 ML ONE (15:23)
[2017-09-18 17:00] VITALS: BP 90/56
[2017-09-18] MEDS: MULTIPLE VITAMIN TAB PO SCH (17:47)
[2017-09-18] MEDS: POTASSIUM CHL 20 Meq TABLET PO SCH (17:47)
[2017-09-18] MEDS: FAMOTIDINE 20 MG TAB PO SCH ×2 (17:48→21:55)
[2017-09-18] MEDS: ASCORBIC ACID 500 MG TAB PO SCH ×4 (17:48→21:55)
[2017-09-18] MEDS: ENOXAPARIN SOD 30 MG/0.3 ML SYRINGE SC SCH (17:49)
[2017-09-18 22:00] VITALS: BP 114/64
[2017-09-19] MEDS: SODIUM CHLORIDE 0.9% 1,000 ML IV SCH ×3 (03:51→15:27)
[2017-09-19 05:30] VITALS: BP 116/71
[2017-09-19] MEDS: MEROPENEM 500mg/10ml IVPUSH 10 ML IV SCH ×3 (06:05→22:01)
[2017-09-19] MEDS: HYDROcodone-ACET 5/325MG TAB PO PRN ×3 (07:59→15:28)
[2017-09-19 09:00] VITALS: BP 97/56
[2017-09-19] MEDS: ASCORBIC ACID 500 MG TAB PO SCH ×4 (10:00→22:02)
[2017-09-19] MEDS: FAMOTIDINE 20 MG TAB PO SCH ×2 (10:28→22:02)
[2017-09-19] MEDS: MULTIPLE VITAMIN TAB PO SCH (10:28)
[2017-09-19] MEDS: POTASSIUM CHL 20 Meq TABLET PO SCH (10:28)
[2017-09-19] MEDS: ENOXAPARIN SOD 30 MG/0.3 ML SYRINGE SC SCH (10:28)
[2017-09-19] MEDS: PRO-STAT 64 30ML PO SCH ×2 (10:29→18:54)
[2017-09-19] MEDS: BOOST PLUS 8 ounce PO SCH ×3 (10:29→18:54)
[2017-09-19] MEDS: SODIUM CHLOR 0.9% PF (SALINE LOCK) 10ML VIAL/SYR IV SCH ×2 (10:29→22:02)
[2017-09-19 11:03] LABS: Basophils # (auto) 0.1 uL; Eosinophils # (auto) 0.2 uL; Lymphocytes # (auto) 2.5 uL; Neutrophils # (auto) 6.8 uL
[2017-09-19 11:05] LABS: Basophils % (auto) 1.3 % (0.0-2.0); Eosinophils % (auto) 1.5 % (0.0-7.0); Hematocrit 29.4 % (41.0-53.0); Hemoglobin 9.4 g/dL (13.5-17.5); Lymphocytes % (auto) 22.9 % (10.0-50.0); Mean Corpuscular Hemoglobin 26.3 pg (28.0-32.0); Mean Corpuscular Hgb Conc. 31.8 g/dL (32.0-36.0); Mean Corpuscular Volume 82.6 fL (80.0-100.0); Monocytes # (auto) 1.2 uL; Neutrophils % (auto) 63.3 % (37.0-80.0); Nucleated Red Blood Cells % 0.1 %; Platelet Count (auto) 632 10^3/uL (140-450); Red Blood Cells 3.56 10^6/uL (4.5-5.90); Red Cell Distribution Width 15.6 % (11.8-14.3); White Blood Cell 10.8 10^3/uL (4.4-10.8)
[2017-09-19 11:26] LABS: BUN/Creatinine Ratio 22.9; Calcium 8.6 mg/dL (8.5-10.1); Potassium 4.1 mmol/L (3.5-5.1)
[2017-09-19] MEDS ORDERED: HYDROmorphone HCL 2 MG/ML VL IV ONE (12:30)
[2017-09-19 14:00] VITALS: BP 94/60
[2017-09-19] MEDS ORDERED: HYDROmorphone HCL 2 MG/ML VL IV PRN (15:45)
[2017-09-19 17:00] VITALS: BP 91/48
[2017-09-19] MEDS ORDERED: VANCOMYCIN 1GM/250ML 250 ML IV SCH (17:00)
[2017-09-19] MEDS: VANCOMYCIN 1GM/250ML 250 ML IV SCH (18:54)
[2017-09-19 22:22] VITALS: BP 113/53
[2017-09-20 05:30] VITALS: BP 117/64
[2017-09-20] MEDS: SODIUM CHLORIDE 0.9% 1,000 ML IV SCH (05:46)
[2017-09-20] MEDS: MEROPENEM 500mg/10ml IVPUSH 10 ML IV SCH (05:47)
[2017-09-20] MEDS: VANCOMYCIN 1GM/250ML 250 ML IV SCH (05:47)
[2017-09-20 05:51] LABS: Basophils # (auto) 0.1 uL; Basophils % (auto) 0.9 % (0.0-2.0); Eosinophils # (auto) 0.2 uL; Eosinophils % (auto) 2.7 % (0.0-7.0); Lymphocytes % (auto) 37.1 % (10.0-50.0); Mean Corpuscular Hemoglobin 27.2 pg (28.0-32.0); Mean Corpuscular Hgb Conc. 32.9 g/dL (32.0-36.0); Mean Corpuscular Volume 82.8 fL (80.0-100.0); Nucleated Red Blood Cells % 0.2 %
[2017-09-20 05:54] LABS: Hematocrit 27.9 % (41.0-53.0); Hemoglobin 9.2 g/dL (13.5-17.5); Lymphocytes # (auto) 2.9 uL; Monocytes # (auto) 1.1 uL; Monocytes % (auto) 14.4 % (0.0-12.0); Neutrophils # (auto) 3.5 uL; Neutrophils % (auto) 44.9 % (37.0-80.0); Platelet Count (auto) 586 10^3/uL (140-450); Red Blood Cells 3.37 10^6/uL (4.5-5.90); Red Cell Distribution Width 15.8 % (11.8-14.3); White Blood Cell 7.9 10^3/uL (4.4-10.8)
[2017-09-20 06:35] LABS: BUN/Creatinine Ratio 19.6; Calcium 8.5 mg/dL (8.5-10.1); Potassium 3.5 mmol/L (3.5-5.1)
[2017-09-20 09:00] VITALS: BP 108/54
[2017-09-20] MEDS ORDERED: ASCO500T11 PO (09:24)
[2017-09-20] MEDS ORDERED: MET500T PO (09:24)
[2017-09-20] MEDS: ASCORBIC ACID 500 MG TAB PO SCH ×2 (10:59→21:14)
[2017-09-20] MEDS: SODIUM CHLOR 0.9% PF (SALINE LOCK) 10ML VIAL/SYR IV SCH ×2 (10:59→21:15)
[2017-09-20] MEDS: POTASSIUM CHL 20 Meq TABLET PO SCH (10:59)
[2017-09-20] MEDS: BOOST PLUS 8 ounce PO SCH ×3 (10:59→18:03)
[2017-09-20] MEDS: PRO-STAT 64 30ML PO SCH ×2 (10:59→18:03)
[2017-09-20] MEDS: MULTIPLE VITAMIN TAB PO SCH (10:59)
[2017-09-20] MEDS: FAMOTIDINE 20 MG TAB PO SCH ×2 (10:59→21:14)
[2017-09-20] MEDS: ENOXAPARIN SOD 30 MG/0.3 ML SYRINGE SC SCH (11:00)
[2017-09-20] MEDS ORDERED: CEFEPIME HYDROCHLORIDE 2 GM in SODIUM CHL 0.9% 50 ML IV ONE (11:15)
[2017-09-20 13:00] VITALS: BP 108/51
[2017-09-20] MEDS ORDERED: MEROPENEM 500mg/10ml IVPUSH 10 ML IV SCH (14:00)
[2017-09-20] MEDS: HYDROcodone-ACET 5/325MG TAB PO PRN (14:10)
[2017-09-20] MEDS: metroNIDAZOLE 500 MG TAB PO SCH ×2 (14:10→21:15)
[2017-09-20 17:00] VITALS: BP 128/82
[2017-09-20] MEDS: CEFEPIME HYDROCHLORIDE 2 GM in SODIUM CHL 0.9% 50 ML IV SCH (21:14)
[2017-09-20 21:43] VITALS: BP 103/62
[2017-09-21] MEDS: SODIUM CHLORIDE 0.9% 1,000 ML IV SCH ×2 (00:44→15:15)
[2017-09-21 04:58] VITALS: BP 94/55
[2017-09-21] MEDS: metroNIDAZOLE 500 MG TAB PO SCH ×2 (05:13→14:09)
[2017-09-21] MEDS ORDERED: BACL20TA PO (06:40)
[2017-09-21 07:24] LABS: BUN/Creatinine Ratio 27.5; Calcium 8.8 mg/dL (8.5-10.1); Potassium 3.9 mmol/L (3.5-5.1)
[2017-09-21 07:39] VITALS: BP 89/59
[2017-09-21 10:21] VITALS: BP 89/59
[2017-09-21] MEDS: BOOST PLUS 8 ounce PO SCH ×3 (11:05→18:49)
[2017-09-21] MEDS: SODIUM CHLOR 0.9% PF (SALINE LOCK) 10ML VIAL/SYR IV SCH (11:06)
[2017-09-21] MEDS: POTASSIUM CHL 20 Meq TABLET PO SCH (11:06)
[2017-09-21] MEDS: CEFEPIME HYDROCHLORIDE 2 GM in SODIUM CHL 0.9% 50 ML IV SCH ×2 (11:06→16:53)
[2017-09-21] MEDS: PRO-STAT 64 30ML PO SCH ×2 (11:06→18:49)
[2017-09-21] MEDS: ASCORBIC ACID 500 MG TAB PO SCH (11:07)
[2017-09-21] MEDS: ENOXAPARIN SOD 30 MG/0.3 ML SYRINGE SC SCH (11:07)
[2017-09-21] MEDS: FAMOTIDINE 20 MG TAB PO SCH (11:07)
[2017-09-21] MEDS: MULTIPLE VITAMIN TAB PO SCH (11:07)
[2017-09-21 11:17] VITALS: BP 111/60
[2017-09-21] MEDS: HYDROcodone-ACET 5/325MG TAB PO PRN (11:39)
[2017-09-21] MEDS ORDERED: FERROUS SULFATE 325 MG TAB PO SCH (12:00)
[2017-09-21 16:24] VITALS: BP 100/69
== END 2017-09-21 19:56 | disposition home health service (06) | DRG 710 ==
LOC: EDBD 20:15 → ER 20:25 → TELE 20:26 → TELE-CENTR 09-10 15:26 → CENTRAL 09-12 09:07
PROVIDERS: ADMIT Nurse Practitioner; ATTEND Internal Medicine
PROC: 0KBN0ZZ Excision of Right Hip Muscle, Open Approach (ICD-10-PCS; principal; 2017-09-12 12:59)
PROC: 02HV33Z Insertion of Infusion Device into Superior Vena Cava, Percutaneous Approach (ICD-10-PCS; 2017-09-14)
PROC: 0JBM0ZZ Excision of Left Upper Leg Subcutaneous Tissue and Fascia, Open Approach (ICD-10-PCS; 2017-09-18)
DX: A41.9 Sepsis, unspecified organism (principal); E43 Unspecified severe protein-calorie malnutrition; G82.50 Quadriplegia, unspecified; L89.154 Pressure ulcer of sacral region, stage 4; L89.024 Pressure ulcer of left elbow, stage 4; L89.214 Pressure ulcer of right hip, stage 4; L89.324 Pressure ulcer of left buttock, stage 4; L89.223 Pressure ulcer of left hip, stage 3; E86.0 Dehydration; L89.90 Pressure ulcer of unspecified site, unspecified stage; B95.2 Enterococcus as the cause of diseases classified elsewhere; D63.8 Anemia in other chronic diseases classified elsewhere; E87.6 Hypokalemia; F12.90 Cannabis use, unspecified, uncomplicated; B96.5 Pseudomonas (aeruginosa) (mallei) (pseudomallei) as the cause of diseases classified elsewhere; R79.89 Other specified abnormal findings of blood chemistry; F17.210 Nicotine dependence, cigarettes, uncomplicated; N31.9 Neuromuscular dysfunction of bladder, unspecified; N39.0 Urinary tract infection, site not specified; Z16.19 Resistance to other specified beta lactam antibiotics; Z74.01 Bed confinement status; Z83.3 Family history of diabetes mellitus; Z88.0 Allergy status to penicillin; Z87.828 Personal history of other (healed) physical injury and trauma; Z68.26 Body mass index [BMI] 26.0-26.9, adult
CPT/HCPCS: 36415; 36569; 71045; 74018; 80048; 80053; 80202; 81001; 82140; 83605; 83690; 85007; 85025; 85027; 85610; 85730; 87040; 87075; 87076; 87077; 87081; 87086; 87088; 87186; 87205; 96365; 96366; 96368; 96372; 96375; 96379; J1100; J1956; J2250; J2270; J2405; J2704; J3490; J7060

== ENCOUNTER 2017-10-26 15:21 | Inpatient (IN) | payer MEDICAID ==
[~2017-10-26] VITALS: Ht 190.5 cm; Wt 57.9 kg
[~2017-10-26 15:21] MED LIST: ASCO500T11 PO; BACL20TA PO; MET500T PO
[2017-10-26] MEDS ORDERED: SODIUM CHLORIDE 0.9% 1,000 ML IV ONE ×2 (15:49)
[2017-10-26 16:06] LABS: Eosinophils # (auto) 0.5 uL
[2017-10-26 16:09] LABS: Basophils # (auto) 0 uL; Basophils % (auto) 0.5 % (0.0-2.0); Eosinophils % (auto) 5.8 % (0.0-7.0); Hematocrit 36.3 % (41.0-53.0); Lymphocytes # (auto) 1.9 uL; Lymphocytes % (auto) 20.9 % (10.0-50.0); Mean Corpuscular Hemoglobin 27.2 pg (28.0-32.0); Mean Corpuscular Hgb Conc. 33.2 g/dL (32.0-36.0); Mean Corpuscular Volume 82.1 fL (80.0-100.0); Monocytes # (auto) 0.9 uL; Monocytes % (auto) 9.7 % (0.0-12.0); Neutrophils # (auto) 5.7 uL; Neutrophils % (auto) 63.1 % (37.0-80.0); Nucleated Red Blood Cells % 0.1 %; Platelet Count (auto) 547 10^3/uL (140-450); Red Blood Cells 4.42 10^6/uL (4.5-5.90); Red Cell Distribution Width 16.4 % (11.8-14.3)
[2017-10-26 16:24] LABS: BUN/Creatinine Ratio 17.2; Bilirubin, Total 0.2 mg/dL (0.2-1.0); Calcium 8.7 mg/dL (8.5-10.1); Potassium 3.6 mmol/L (3.5-5.1); Total Protein 9.2 g/dL (6.4-8.2)
[2017-10-26] MEDS ORDERED: IOHEXOL 300 MG/ML 100ML BOTTLE IJ ONE ×2 (17:27→23:19)
[2017-10-26 17:32] LABS: INR 1.06 (0.9-1.15); Partial Thromboplastin Time 30.3 sec (23.78-33.04); Prothrombin Time 11.3 sec (9.27-12.13)
[2017-10-26] MEDS ORDERED: VANCOMYCIN PER PHARMACY 0 MG IV SCH (18:45)
[2017-10-26] MEDS ORDERED: MORPHINE SULFATE 8mg/ml INJ SDV IV PRN (18:45)
[2017-10-26] MEDS ORDERED: VANCOMYCIN 1GM/250ML 250 ML IV ONE (18:45)
[2017-10-26] MEDS ORDERED: ERTAPENEM SOD INJ 1 GM in SODIUM CHL 0.9% 50 ML IV ONE (18:45)
[2017-10-26] MEDS ORDERED: NITROGLYCERIN 0.4 MG SL TAB SL PRN (18:45)
[2017-10-26] MEDS ORDERED: PROMETHAZINE HCL 25 MG/ML 1ML IV PRN (18:45)
[2017-10-26] MEDS ORDERED: LACTULOSE 20Gm/30ML SOLN PO PRN (18:45)
[2017-10-26] MEDS ORDERED: ACETAMINOPHEN 500 MG TAB PO PRN (18:45)
[2017-10-26] MEDS ORDERED: HYDROcodone-ACET 5/325MG TAB PO PRN (18:45)
[2017-10-26] MEDS ORDERED: KETOROLAC TROMETH 30 MG/ML 1ML VIAL IV PRN (18:45)
[2017-10-26] MEDS: SODIUM CHLORIDE 0.9% 1,000 ML IV SCH (21:02)
[2017-10-26 21:20] LABS: Urine Bacteria MANY /hpf (None Seen); Urine Blood 2+ /uL (Negative); Urine Budding Yeast MANY /hpf (None Seen); Urine Mucus MANY (None Seen); Urine Specific Gravity 1.022 (1.001-1.035); Urine WBC 1231 /hpf (0 - 3); Urine WBC Clumps PRESENT /hpf (None Seen)
[2017-10-26] MEDS: VANCOMYCIN 750 MG in D5W 5% 250 ML IV SCH (21:58)
[2017-10-26] MEDS: ASCORBIC ACID 500 MG TAB PO SCH (21:59)
[2017-10-26] MEDS: BACLOFEN 10 MG TAB PO SCH (21:59)
[2017-10-26 23:02] VITALS: BP 138/84
[2017-10-26 23:25] VITALS: BP 138/84
[2017-10-27 04:39] VITALS: BP 162/109
[2017-10-27] MEDS: BACLOFEN 10 MG TAB PO SCH ×3 (06:16→22:07)
[2017-10-27] MEDS: VANCOMYCIN 750 MG in D5W 5% 250 ML IV SCH ×3 (06:16→22:07)
[2017-10-27] MEDS: SODIUM CHLORIDE 0.9% 1,000 ML IV SCH ×2 (07:28→19:35)
[2017-10-27 08:00] VITALS: BP 120/79
[2017-10-27 08:33] VITALS: BP 120/79
[2017-10-27] MEDS: ASCORBIC ACID 500 MG TAB PO SCH ×2 (09:55→22:08)
[2017-10-27] MEDS: ERTAPENEM SOD INJ 1 GM in SODIUM CHL 0.9% 50 ML IV SCH (09:56)
[2017-10-27] MEDS: ENOXAPARIN SOD 40 MG/0.4 ML SYRINGE SC SCH (09:56)
[2017-10-27 11:57] VITALS: BP 119/70
[2017-10-27 16:50] VITALS: BP 139/78
[2017-10-27 22:00] VITALS: BP 130/82
[2017-10-28 05:00] VITALS: BP 100/58
[2017-10-28] MEDS: VANCOMYCIN 750 MG in D5W 5% 250 ML IV SCH ×3 (05:41→22:37)
[2017-10-28] MEDS: BACLOFEN 10 MG TAB PO SCH ×3 (05:41→22:37)
[2017-10-28 06:02] LABS: Basophils # (auto) 0 uL; Basophils % (auto) 0.6 % (0.0-2.0); Eosinophils # (auto) 0.4 uL; Lymphocytes # (auto) 2.2 uL; Monocytes # (auto) 1.1 uL
[2017-10-28 06:04] LABS: Eosinophils % (auto) 5.6 % (0.0-7.0); Hematocrit 33.7 % (41.0-53.0); Hemoglobin 11.2 g/dL (13.5-17.5); Lymphocytes % (auto) 30.3 % (10.0-50.0); Mean Corpuscular Hemoglobin 26.9 pg (28.0-32.0); Mean Corpuscular Hgb Conc. 33.2 g/dL (32.0-36.0); Mean Corpuscular Volume 80.9 fL (80.0-100.0); Neutrophils # (auto) 3.6 uL; Neutrophils % (auto) 48.5 % (37.0-80.0); Nucleated Red Blood Cells % 0.1 %; Platelet Count (auto) 497 10^3/uL (140-450); Red Blood Cells 4.17 10^6/uL (4.5-5.90); Red Cell Distribution Width 16.3 % (11.8-14.3); White Blood Cell 7.3 10^3/uL (4.4-10.8)
[2017-10-28 06:13] LABS: BUN/Creatinine Ratio 13.5; Calcium 8.6 mg/dL (8.5-10.1); Potassium 3.6 mmol/L (3.5-5.1)
[2017-10-28] MEDS: SODIUM CHLORIDE 0.9% 1,000 ML IV SCH ×2 (07:06→22:41)
[2017-10-28 08:00] VITALS: BP 101/52
[2017-10-28 09:00] VITALS: BP 101/52
[2017-10-28] MEDS: ENOXAPARIN SOD 40 MG/0.4 ML SYRINGE SC SCH (09:18)
[2017-10-28] MEDS: ERTAPENEM SOD INJ 1 GM in SODIUM CHL 0.9% 50 ML IV SCH (09:18)
[2017-10-28] MEDS: ASCORBIC ACID 500 MG TAB PO SCH ×2 (09:18→22:37)
[2017-10-28] MEDS ORDERED: FLUCONAZOLE 200MG/100ML 100 ML IV ONE (11:45)
[2017-10-28] MEDS: BOOST PLUS 8 ounce PO SCH ×2 (12:02→17:33)
[2017-10-28 13:00] VITALS: BP 108/58
[2017-10-28 17:06] VITALS: BP 110/60
[2017-10-28 22:00] VITALS: BP 96/57
[2017-10-29 05:39] VITALS: BP 107/62
[2017-10-29 06:01] LABS: Basophils # (auto) 0 uL; Eosinophils # (auto) 0.4 uL; Lymphocytes # (auto) 2.7 uL; Mean Corpuscular Hgb Conc. 32.6 g/dL (32.0-36.0); Neutrophils # (auto) 3.4 uL; White Blood Cell 7.9 10^3/uL (4.4-10.8)
[2017-10-29 06:04] LABS: Basophils % (auto) 0.4 % (0.0-2.0); Eosinophils % (auto) 4.7 % (0.0-7.0); Hematocrit 33.6 % (41.0-53.0); Hemoglobin 10.9 g/dL (13.5-17.5); Lymphocytes % (auto) 34.7 % (10.0-50.0); Mean Corpuscular Hemoglobin 26.8 pg (28.0-32.0); Mean Corpuscular Volume 82.4 fL (80.0-100.0); Monocytes # (auto) 1.4 uL; Monocytes % (auto) 17.2 % (0.0-12.0); Nucleated Red Blood Cells % 0.1 %; Platelet Count (auto) 484 10^3/uL (140-450); Red Blood Cells 4.08 10^6/uL (4.5-5.90); Red Cell Distribution Width 16.4 % (11.8-14.3)
[2017-10-29 06:13] LABS: BUN/Creatinine Ratio 17.4; Calcium 8.4 mg/dL (8.5-10.1); Magnesium 2.3 mg/dL (1.6-2.6); Potassium 3.8 mmol/L (3.5-5.1)
[2017-10-29] MEDS: VANCOMYCIN 750 MG in D5W 5% 250 ML IV SCH ×3 (06:15→22:59)
[2017-10-29] MEDS: BACLOFEN 10 MG TAB PO SCH ×3 (06:15→22:58)
[2017-10-29 09:23] VITALS: BP 112/69
[2017-10-29] MEDS: ASCORBIC ACID 500 MG TAB PO SCH ×2 (10:21→22:58)
[2017-10-29] MEDS: ENOXAPARIN SOD 40 MG/0.4 ML SYRINGE SC SCH (10:21)
[2017-10-29] MEDS: FLUCONAZOLE 200MG/100ML 100 ML IV SCH (10:21)
[2017-10-29] MEDS: BOOST PLUS 8 ounce PO SCH ×3 (10:21→18:00)
[2017-10-29] MEDS: SODIUM CHLORIDE 0.9% 1,000 ML IV SCH ×2 (10:21→22:59)
[2017-10-29] MEDS: ERTAPENEM SOD INJ 1 GM in SODIUM CHL 0.9% 50 ML IV SCH (11:38)
[2017-10-29 13:00] VITALS: BP 114/54
[2017-10-29 16:56] VITALS: BP 145/96
[2017-10-29 21:27] VITALS: BP 118/65
[2017-10-30 05:36] VITALS: BP 108/74
[2017-10-30] MEDS: VANCOMYCIN 750 MG in D5W 5% 250 ML IV SCH ×3 (05:52→23:23)
[2017-10-30] MEDS: BACLOFEN 10 MG TAB PO SCH ×3 (05:52→23:23)
[2017-10-30 06:17] LABS: Albumin 2.4 g/dL (3.4-5.0); BUN/Creatinine Ratio 23.8; Calcium 8.5 mg/dL (8.5-10.1)
[2017-10-30 06:20] LABS: Bilirubin, Total 0.1 mg/dL (0.2-1.0); Total Protein 7.8 g/dL (6.4-8.2)
[2017-10-30 09:00] VITALS: BP 117/72
[2017-10-30] MEDS: ASCORBIC ACID 500 MG TAB PO SCH ×3 (10:00→23:24)
[2017-10-30] MEDS: ENOXAPARIN SOD 40 MG/0.4 ML SYRINGE SC SCH (10:00)
[2017-10-30] MEDS: SODIUM CHLORIDE 0.9% 1,000 ML IV SCH ×2 (10:00→11:33)
[2017-10-30] MEDS: BOOST PLUS 8 ounce PO SCH ×3 (10:00→18:28)
[2017-10-30] MEDS: FLUCONAZOLE 200MG/100ML 100 ML IV SCH (10:00)
[2017-10-30] MEDS: ERTAPENEM SOD INJ 1 GM in SODIUM CHL 0.9% 50 ML IV SCH (11:30)
[2017-10-30 17:00] VITALS: BP_SYST 106; BP_SYST 93; BP_DIAS 53; BP_DIAS 56
[2017-10-30] MEDS: MULTIPLE VITAMINS W/ MINERALS TAB PO SCH (17:48)
[2017-10-30] MEDS: PRO-STAT 64 30ML PO SCH (18:28)
[2017-10-30 23:05] VITALS: BP 134/76
[2017-10-31 05:29] VITALS: BP 132/76
[2017-10-31 06:00] LABS: Basophils # (auto) 0.1 uL; Eosinophils # (auto) 0.5 uL; Hemoglobin 10.5 g/dL (13.5-17.5); Lymphocytes # (auto) 2.8 uL; Monocytes # (auto) 0.9 uL; Neutrophils # (auto) 3.3 uL; Red Cell Distribution Width 16.3 % (11.8-14.3); White Blood Cell 7.6 10^3/uL (4.4-10.8)
[2017-10-31] MEDS: VANCOMYCIN 750 MG in D5W 5% 250 ML IV SCH ×3 (06:01→22:20)
[2017-10-31] MEDS: BACLOFEN 10 MG TAB PO SCH ×3 (06:01→22:20)
[2017-10-31 06:02] LABS: Eosinophils % (auto) 6.8 % (0.0-7.0); Hematocrit 31.7 % (41.0-53.0); Mean Corpuscular Hgb Conc. 33.2 g/dL (32.0-36.0); Mean Corpuscular Volume 81.5 fL (80.0-100.0); Monocytes % (auto) 11.6 % (0.0-12.0); Neutrophils % (auto) 43.6 % (37.0-80.0); Platelet Count (auto) 538 10^3/uL (140-450); Red Blood Cells 3.89 10^6/uL (4.5-5.90)
[2017-10-31] MEDS: PRO-STAT 64 30ML PO SCH ×2 (08:23→18:18)
[2017-10-31] MEDS: BOOST PLUS 8 ounce PO SCH ×3 (08:23→18:19)
[2017-10-31 09:00] VITALS: BP 122/67
[2017-10-31] MEDS: ASCORBIC ACID 500 MG TAB PO SCH ×4 (10:00→22:20)
[2017-10-31] MEDS: SODIUM CHLORIDE 0.9% 1,000 ML IV SCH (10:07)
[2017-10-31] MEDS: ENOXAPARIN SOD 40 MG/0.4 ML SYRINGE SC SCH (10:07)
[2017-10-31] MEDS: MULTIPLE VITAMINS W/ MINERALS TAB PO SCH (10:07)
[2017-10-31] MEDS: FLUCONAZOLE 200MG/100ML 100 ML IV SCH (10:07)
[2017-10-31] MEDS: ERTAPENEM SOD INJ 1 GM in SODIUM CHL 0.9% 50 ML IV SCH (11:41)
[2017-10-31 13:00] VITALS: BP 120/62
[2017-10-31 17:00] VITALS: BP 123/81
[2017-10-31 22:00] VITALS: BP 131/74
[2017-11-01 05:00] VITALS: BP 111/64
[2017-11-01] MEDS: SODIUM CHLORIDE 0.9% 1,000 ML IV SCH (06:00)
[2017-11-01] MEDS: BACLOFEN 10 MG TAB PO SCH ×2 (06:00→17:00)
[2017-11-01] MEDS: VANCOMYCIN 750 MG in D5W 5% 250 ML IV SCH ×2 (06:09→17:00)
[2017-11-01 08:00] VITALS: BP 115/74
[2017-11-01] MEDS: PRO-STAT 64 30ML PO SCH ×2 (08:00→18:00)
[2017-11-01] MEDS: FLUCONAZOLE 200MG/100ML 100 ML IV SCH (10:13)
[2017-11-01] MEDS: ASCORBIC ACID 500 MG TAB PO SCH ×2 (10:13→11:16)
[2017-11-01] MEDS: MULTIPLE VITAMINS W/ MINERALS TAB PO SCH (10:13)
[2017-11-01] MEDS: ENOXAPARIN SOD 40 MG/0.4 ML SYRINGE SC SCH (10:13)
[2017-11-01] MEDS: BOOST PLUS 8 ounce PO SCH ×3 (11:16→18:00)
[2017-11-01] MEDS: ERTAPENEM SOD INJ 1 GM in SODIUM CHL 0.9% 50 ML IV SCH (11:39)
[2017-11-01 12:00] VITALS: BP 98/51
[2017-11-01] MEDS ORDERED: FLUC200T35 PO (12:46)
[2017-11-01 17:00] VITALS: BP 98/51
[2017-11-01 18:03] VITALS: BP 98/51
== END 2017-11-01 20:45 | disposition home health service (06) | DRG 463 ==
LOC: ER 15:26 → TELE 15:27 → TELE-CENTR 20:00 → CENTRAL 10-29 11:33
PROVIDERS: ADMIT Internal Medicine; ATTEND Internal Medicine
DX: N39.0 Urinary tract infection, site not specified (principal); E43 Unspecified severe protein-calorie malnutrition; G82.50 Quadriplegia, unspecified; L89.154 Pressure ulcer of sacral region, stage 4; L89.024 Pressure ulcer of left elbow, stage 4; L89.214 Pressure ulcer of right hip, stage 4; L89.894 Pressure ulcer of other site, stage 4; L89.224 Pressure ulcer of left hip, stage 4; N31.9 Neuromuscular dysfunction of bladder, unspecified; L89.324 Pressure ulcer of left buttock, stage 4; B95.2 Enterococcus as the cause of diseases classified elsewhere; Z16.12 Extended spectrum beta lactamase (ESBL) resistance; L89.524 Pressure ulcer of left ankle, stage 4; R79.89 Other specified abnormal findings of blood chemistry; B95.62 Methicillin resistant Staphylococcus aureus infection as the cause of diseases classified elsewhere; B96.5 Pseudomonas (aeruginosa) (mallei) (pseudomallei) as the cause of diseases classified elsewhere; F17.210 Nicotine dependence, cigarettes, uncomplicated; Z83.3 Family history of diabetes mellitus; Z88.0 Allergy status to penicillin; Z79.899 Other long term (current) drug therapy; Z68.1 Body mass index [BMI] 19.9 or less, adult; B96.20 Unspecified Escherichia coli [E. coli] as the cause of diseases classified elsewhere
CPT/HCPCS: 36415; 71045; 74177; 80048; 80053; 80202; 81001; 82565; 83605; 83735; 84484; 85025; 85610; 85730; 86850; 86900; 86901; 87040; 87077; 87081; 87086; 87088; 87186; 87205; 96361; 96365; 96372; J1335; J1450; J7060

== ENCOUNTER 2017-11-05 22:07 | Emergency (ER) | payer MEDICAID ==
[~2017-11-05] VITALS: Ht 190.5 cm; Wt 54.4 kg
[~2017-11-05 22:07] MED LIST changes: +FLUC200T35 PO
[2017-11-05 23:16] VITALS: BP 104/84
== END 2017-11-06 01:03 | disposition left against medical advice (07) ==
LOC: ER 22:07
DX: T83.098A Other mechanical complication of other urinary catheter, initial encounter (principal); Z53.21 Procedure and treatment not carried out due to patient leaving prior to being seen by health care provider

== ENCOUNTER 2017-11-06 23:08 | Emergency (ER) | payer MEDICAID ==
[~2017-11-06] VITALS: Ht 190.5 cm; Wt 54.4 kg
[2017-11-06 23:49] LABS: Basophils # (auto) 0.1 uL; Eosinophils # (auto) 0.3 uL; Hemoglobin 12.3 g/dL (13.5-17.5); Lymphocytes # (auto) 3.4 uL; Monocytes # (auto) 1.3 uL
[2017-11-06 23:50] LABS: Basophils % (auto) 1.2 % (0.0-2.0); Lymphocytes % (auto) 32.8 % (10.0-50.0); Mean Corpuscular Hemoglobin 26.3 pg (28.0-32.0); Mean Corpuscular Hgb Conc. 32.4 g/dL (32.0-36.0); Mean Corpuscular Volume 81.2 fL (80.0-100.0); Monocytes % (auto) 12.7 % (0.0-12.0); Neutrophils # (auto) 5.2 uL; Neutrophils % (auto) 50.3 % (37.0-80.0); Red Blood Cells 4.68 10^6/uL (4.5-5.90); White Blood Cell 10.3 10^3/uL (4.4-10.8)
[2017-11-06 23:52] LABS: Platelet Count (auto) 594 10^3/uL (140-450)
[2017-11-07 00:04] LABS: INR 1.09 (0.9-1.15); Prothrombin Time 11.6 sec (9.27-12.13)
[2017-11-07 00:05] LABS: Albumin 2.9 g/dL (3.4-5.0); Anion Gap 10 (5-15); BUN/Creatinine Ratio 14.5; Blood Urea Nitrogen 12 mg/dL (7-18); Calcium 8.6 mg/dL (8.5-10.1); Carbon Dioxide 25 mmol/L (21-32); Chloride 106 mmol/L (98-107); GFR African American 143 mL/min; GFR Non-African American 118 mL/min; Glucose 124 mg/dL (74-106); Magnesium 2.5 mg/dL (1.6-2.6); Potassium 3.5 mmol/L (3.5-5.1); Sodium 141 mmol/L (136-145)
[2017-11-07 00:17] LABS: Alanine Aminotransferase 32 U/L (16-61); Alkaline Phosphatase 116 U/L (45-117); Aspartate Aminotransferase 18 U/L (15-37); Bilirubin, Total 0.2 mg/dL (0.2-1.0); Total Protein 9.7 g/dL (6.4-8.2)
[2017-11-07 07:50] VITALS: BP 116/73
== END 2017-11-07 08:31 | disposition home or self-care (01) ==
LOC: EDBD 23:08 → ER 23:13
DX: R07.89 Other chest pain (principal); G82.20 Paraplegia, unspecified; L89.153 Pressure ulcer of sacral region, stage 3; N39.0 Urinary tract infection, site not specified; F17.210 Nicotine dependence, cigarettes, uncomplicated; R06.02 Shortness of breath; Z88.0 Allergy status to penicillin
CPT/HCPCS: 36415; 71045; 80053; 81002; 83735; 83880; 84484; 85025; 85610; 85730; 93005

== ENCOUNTER 2017-11-12 15:01 | Emergency (ER) | payer MEDICAID ==
[~2017-11-12] VITALS: Ht 190.5 cm; Wt 59.0 kg
[2017-11-12 15:30] VITALS: BP 127/79
== END 2017-11-12 17:26 | disposition home or self-care (01) ==
LOC: ER 15:01
DX: L89.224 Pressure ulcer of left hip, stage 4 (principal); L89.214 Pressure ulcer of right hip, stage 4; F17.210 Nicotine dependence, cigarettes, uncomplicated; Z45.2 Encounter for adjustment and management of vascular access device; Z88.0 Allergy status to penicillin; Z79.899 Other long term (current) drug therapy

== ENCOUNTER 2020-10-23 14:08 | Inpatient (IN) | payer MEDICAID ==
[~2020-10-23] VITALS: Ht 182.9 cm; Wt 39.6 kg
[2020-10-23 15:42] LABS: Basophils # (auto) 0 10 ^3/uL (0-0.2); Basophils % (auto) 0.3 % (0.0-2.0); Eosinophils # (auto) 0.2 10 ^3/uL (0-0.8); Eosinophils % (auto) 1.2 % (0.0-7.0); Hematocrit 38.9 % (41.0-53.0); Hemoglobin 13.4 g/dL (13.5-17.5); Lymphocytes # (auto) 3.1 10 ^3/uL (0.4-5.4); Mean Corpuscular Hgb Conc. 34.4 g/dL (32.0-36.0); Monocytes # (auto) 1.7 10 ^3/uL (0-1.3); Monocytes % (auto) 13.3 % (0.0-12.0); Neutrophils % (auto) 61.2 % (37.0-80.0); Nucleated Red Blood Cells % 0.1 %; Red Blood Cells 4.47 10^6/uL (4.5-5.90); White Blood Cell 13.1 10^3/uL (4.4-10.8)
[2020-10-23 16:01] LABS: Albumin 3.1 g/dL (3.4-5.0); BUN/Creatinine Ratio 12.3; Calcium 9.2 mg/dL (8.5-10.1); Potassium 3.9 mmol/L (3.5-5.1)
[2020-10-23 16:03] LABS: Bilirubin, Total 0.3 mg/dL (0.2-1.0); Total Protein 8.8 g/dL (6.4-8.2)
[2020-10-23] MEDS ORDERED: cefTRIAXone 1GM/50ML D5W 50 ML IV ONE (19:45)
[2020-10-23] MEDS ORDERED: SODIUM CHLORIDE 0.9% 1,000 ML IVB ONE (19:45)
[2020-10-23] MEDS ORDERED: VANCOMYCIN PER PHARMACY 0 MG IV SCH (20:45)
[2020-10-23] MEDS ORDERED: MORPHINE SULFATE INJECTION 2 MG/ML SYRG IV PRN ×2 (20:45)
[2020-10-23] MEDS ORDERED: ACETAMINOPHEN 500 MG TAB PO PRN (20:45)
[2020-10-23] MEDS ORDERED: NITROGLYCERIN 0.4 MG SL TAB SL PRN (20:45)
[2020-10-23] MEDS: SODIUM CHLORIDE 0.9% 1,000 ML IV SCH (20:59)
[2020-10-23] MEDS ORDERED: VANCOMYCIN 1GM/250ML 250 ML IV ONE (21:00)
[2020-10-23] MEDS ORDERED: PATIENTS OWN MEDICATION (Baclofen 1 TAB) PO SCH (22:00)
[2020-10-23] MEDS: ASCORBIC ACID 500 MG TAB PO SCH (22:18)
[2020-10-23 23:27] LABS: INR 1.15 (0.9-1.15)
[2020-10-24] VITALS: BP 122/74
[2020-10-24] MEDS ORDERED: HYDROcodone-ACET 5/325MG TAB PO PRN (00:45)
[2020-10-24] MEDS ORDERED: SODIUM CHLORIDE 0.9% 1,000 ML IV ONE (00:45)
[2020-10-24] MEDS ORDERED: MORPHINE SULFATE INJECTION 2 MG/ML SYRG IV PRN (01:00)
[2020-10-24 05:00] VITALS: BP 119/67
[2020-10-24 05:13] LABS: Basophils # (auto) 0 10 ^3/uL (0-0.2); Basophils % (auto) 0.4 % (0.0-2.0); Eosinophils # (auto) 0.2 10 ^3/uL (0-0.8); Eosinophils % (auto) 1.6 % (0.0-7.0); Hematocrit 33.2 % (41.0-53.0); Hemoglobin 11.3 g/dL (13.5-17.5); Lymphocytes # (auto) 2.8 10 ^3/uL (0.4-5.4); Lymphocytes % (auto) 26.9 % (10.0-50.0); Mean Corpuscular Hemoglobin 30.1 pg (28.0-32.0); Mean Corpuscular Hgb Conc. 34.1 g/dL (32.0-36.0); Mean Corpuscular Volume 88.2 fL (80.0-100.0); Monocytes # (auto) 1.4 10 ^3/uL (0-1.3); Monocytes % (auto) 13.6 % (0.0-12.0); Neutrophils % (auto) 57.5 % (37.0-80.0); Nucleated Red Blood Cells % 0.1 %; Red Blood Cells 3.76 10^6/uL (4.5-5.90); Red Cell Distribution Width 13.9 % (11.8-14.3); White Blood Cell 10.5 10^3/uL (4.4-10.8)
[2020-10-24 05:23] LABS: Potassium 3.4 mmol/L (3.5-5.1)
[2020-10-24 05:33] LABS: BUN/Creatinine Ratio 18.9; Calcium 7.9 mg/dL (8.5-10.1)
[2020-10-24] MEDS: CLINDAMYCIN 600MG IV 50 ML IV SCH ×3 (05:38→21:31)
[2020-10-24] MEDS: SODIUM CHLORIDE 0.9% 1,000 ML IV SCH ×2 (06:45→16:54)
[2020-10-24 08:42] VITALS: BP 117/79
[2020-10-24] MEDS: levoFLOXacin 500MG 100 ML IV SCH (10:23)
[2020-10-24] MEDS: ASCORBIC ACID 500 MG TAB PO SCH ×2 (10:23→21:31)
[2020-10-24 12:42] VITALS: BP 138/77
[2020-10-24] MEDS ORDERED: POTASSIUM CHL 20 Meq TABLET PO ONE (12:45)
[2020-10-24 16:42] VITALS: BP 125/89
[2020-10-24 22:00] VITALS: BP 130/85
[2020-10-25] MEDS ORDERED: PNEUMOCOCCAL VACC POLYS 25 MCG/0.5 ML VIAL IM ONE (01:45)
[2020-10-25] MEDS: SODIUM CHLORIDE 0.9% 1,000 ML IV SCH ×3 (03:32→22:45)
[2020-10-25 05:00] VITALS: BP 138/84
[2020-10-25] MEDS: CLINDAMYCIN 600MG IV 50 ML IV SCH ×3 (05:34→22:00)
[2020-10-25 09:00] VITALS: BP 131/69
[2020-10-25] MEDS: SILVER SULFADIAZINE 1 % TOPICAL CREAM 50GM TOP SCH (09:57)
[2020-10-25] MEDS: levoFLOXacin 500MG 100 ML IV SCH (09:57)
[2020-10-25] MEDS: ASCORBIC ACID 500 MG TAB PO SCH ×2 (09:57→22:00)
[2020-10-25 10:03] LABS: Basophils # (auto) 0 10 ^3/uL (0-0.2); Basophils % (auto) 0.5 % (0.0-2.0); Eosinophils # (auto) 0.1 10 ^3/uL (0-0.8); Eosinophils % (auto) 1.5 % (0.0-7.0); Hematocrit 33.5 % (41.0-53.0); Hemoglobin 11.1 g/dL (13.5-17.5); Lymphocytes # (auto) 1.6 10 ^3/uL (0.4-5.4); Mean Corpuscular Hemoglobin 29.2 pg (28.0-32.0); Mean Corpuscular Hgb Conc. 33.1 g/dL (32.0-36.0); Mean Corpuscular Volume 88.2 fL (80.0-100.0); Monocytes # (auto) 0.7 10 ^3/uL (0-1.3); Neutrophils # (auto) 5.8 10 ^3/uL (1.6-8.6); Red Cell Distribution Width 13.7 % (11.8-14.3); White Blood Cell 8.2 10^3/uL (4.4-10.8)
[2020-10-25 10:19] LABS: INR 1.2 (0.9-1.15); Partial Thromboplastin Time 27.9 sec (23.0-31.2)
[2020-10-25 11:05] LABS: Calcium 8.9 mg/dL (8.5-10.1); Potassium 4.4 mmol/L (3.5-5.1)
[2020-10-25 13:00] VITALS: BP 112/69
[2020-10-25 17:00] VITALS: BP 157/115
[2020-10-25 20:00] VITALS: BP 105/62
[2020-10-25 22:00] VITALS: BP 105/62
[2020-10-26 05:00] VITALS: BP 144/78
[2020-10-26] MEDS: CLINDAMYCIN 600MG IV 50 ML IV SCH ×3 (06:05→22:11)
[2020-10-26 08:00] VITALS: BP 106/76
[2020-10-26 09:00] VITALS: BP 158/107
[2020-10-26] MEDS: levoFLOXacin 500MG 100 ML IV SCH (10:21)
[2020-10-26] MEDS: ASCORBIC ACID 500 MG TAB PO SCH ×2 (10:21→22:12)
[2020-10-26] MEDS: SODIUM CHLORIDE 0.9% 1,000 ML IV SCH ×2 (10:21→18:27)
[2020-10-26] MEDS: SILVER SULFADIAZINE 1 % TOPICAL CREAM 50GM TOP SCH (10:22)
[2020-10-26 13:00] VITALS: BP 91/54
[2020-10-26] MEDS: MEROPENEM 1GM IVPB 100 ML IV SCH (14:47)
[2020-10-26 16:45] VITALS: BP 120/74
[2020-10-26 22:00] VITALS: BP 131/76
[2020-10-27] MEDS: MEROPENEM 1GM IVPB 100 ML IV SCH ×2 (00:09→06:55)
[2020-10-27] MEDS: SODIUM CHLORIDE 0.9% 1,000 ML IV SCH ×2 (04:36→13:43)
[2020-10-27 05:00] VITALS: BP 130/78
[2020-10-27] MEDS: CLINDAMYCIN 600MG IV 50 ML IV SCH ×3 (06:03→22:51)
[2020-10-27 08:30] VITALS: BP 133/83
[2020-10-27 10:04] LABS: BUN/Creatinine Ratio 16.7; Calcium 9.1 mg/dL (8.5-10.1); Potassium 4.1 mmol/L (3.5-5.1)
[2020-10-27 10:17] LABS: Basophils # (auto) 0 10 ^3/uL (0-0.2); Basophils % (auto) 0.7 % (0.0-2.0); Eosinophils # (auto) 0.1 10 ^3/uL (0-0.8); Eosinophils % (auto) 1.8 % (0.0-7.0); Hematocrit 35.3 % (41.0-53.0); Hemoglobin 12.2 g/dL (13.5-17.5); Lymphocytes # (auto) 1.9 10 ^3/uL (0.4-5.4); Lymphocytes % (auto) 27.1 % (10.0-50.0); Mean Corpuscular Hemoglobin 30.1 pg (28.0-32.0); Mean Corpuscular Hgb Conc. 34.5 g/dL (32.0-36.0); Mean Corpuscular Volume 87.1 fL (80.0-100.0); Monocytes # (auto) 0.8 10 ^3/uL (0-1.3); Neutrophils # (auto) 4.2 10 ^3/uL (1.6-8.6); Neutrophils % (auto) 59.4 % (37.0-80.0); Nucleated Red Blood Cells % 0.1 %; Red Blood Cells 4.05 10^6/uL (4.5-5.90); Red Cell Distribution Width 13.9 % (11.8-14.3)
[2020-10-27] MEDS: SILVER SULFADIAZINE 1 % TOPICAL CREAM 50GM TOP SCH (10:51)
[2020-10-27] MEDS: ASCORBIC ACID 500 MG TAB PO SCH ×2 (10:51→22:51)
[2020-10-27 12:30] VITALS: BP 93/56
[2020-10-27 17:00] VITALS: BP 118/75
[2020-10-27 22:00] VITALS: BP 117/75
[2020-10-28] MEDS: SODIUM CHLORIDE 0.9% 1,000 ML IV SCH ×3 (00:58→21:18)
[2020-10-28 05:04] VITALS: BP 137/88
[2020-10-28] MEDS: CLINDAMYCIN 600MG IV 50 ML IV SCH ×3 (05:43→22:26)
[2020-10-28 08:37] VITALS: BP 128/88
[2020-10-28] MEDS: cefTRIAXone 1GM/50ML D5W 50 ML IV SCH (10:01)
[2020-10-28] MEDS: ASCORBIC ACID 500 MG TAB PO SCH ×2 (10:01→22:25)
[2020-10-28 13:00] VITALS: BP 148/97
[2020-10-28 17:02] VITALS: BP 147/80
[2020-10-28 20:00] VITALS: BP 145/86
[2020-10-28] MEDS: SILVER SULFADIAZINE 1 % TOPICAL CREAM 50GM TOP SCH (21:19)
[2020-10-28 22:57] VITALS: BP 145/86
[2020-10-29] VITALS (7 sets, daily range): BP systolic 114–148; BP diastolic 66–87
[2020-10-29] MEDS: CLINDAMYCIN 600MG IV 50 ML IV SCH ×3 (05:39→21:33)
[2020-10-29] MEDS: SODIUM CHLORIDE 0.9% 1,000 ML IV SCH ×2 (06:33→17:38)
[2020-10-29] MEDS: cefTRIAXone 1GM/50ML D5W 50 ML IV SCH (08:36)
[2020-10-29] MEDS: SILVER SULFADIAZINE 1 % TOPICAL CREAM 50GM TOP SCH (10:17)
[2020-10-29] MEDS: ASCORBIC ACID 500 MG TAB PO SCH ×2 (13:39→21:32)
[2020-10-30] VITALS (7 sets, daily range): BP systolic 102–147; BP diastolic 63–91
[2020-10-30] MEDS: SODIUM CHLORIDE 0.9% 1,000 ML IV SCH ×2 (02:45→12:27)
[2020-10-30] MEDS: CLINDAMYCIN 600MG IV 50 ML IV SCH ×3 (06:14→22:05)
[2020-10-30 09:48] LABS: Basophils # (auto) 0.1 10 ^3/uL (0-0.2); Eosinophils # (auto) 0.2 10 ^3/uL (0-0.8); Hemoglobin 12.2 g/dL (13.5-17.5); Lymphocytes # (auto) 2.8 10 ^3/uL (0.4-5.4); Mean Corpuscular Hemoglobin 29.3 pg (28.0-32.0); Monocytes # (auto) 0.9 10 ^3/uL (0-1.3); White Blood Cell 8.1 10^3/uL (4.4-10.8)
[2020-10-30 09:49] LABS: Basophils % (auto) 0.9 % (0.0-2.0); Eosinophils % (auto) 2.4 % (0.0-7.0); Hematocrit 36.4 % (41.0-53.0); Lymphocytes % (auto) 34.8 % (10.0-50.0); Mean Corpuscular Hgb Conc. 33.6 g/dL (32.0-36.0); Mean Corpuscular Volume 87.2 fL (80.0-100.0); Monocytes % (auto) 11.1 % (0.0-12.0); Neutrophils # (auto) 4.1 10 ^3/uL (1.6-8.6); Neutrophils % (auto) 50.8 % (37.0-80.0); Red Blood Cells 4.18 10^6/uL (4.5-5.90); Red Cell Distribution Width 14.2 % (11.8-14.3)
[2020-10-30] MEDS ORDERED: LIDOCAINE 2% (LOCAL ANESTH.) PF 5ml SDV ONE (10:03)
[2020-10-30] MEDS ORDERED: PROPOFOL 10 MG/ML 20 ML IV ONE (10:03)
[2020-10-30] MEDS ORDERED: MIDAZOLAM HCL 2MG/2ML 2ml VIAL (1mg/ml) ONE (10:03)
[2020-10-30 10:07] LABS: INR 1.12 (0.9-1.15); Partial Thromboplastin Time 22.9 sec (23.0-31.2)
[2020-10-30 10:09] LABS: Albumin 2.8 g/dL (3.4-5.0); BUN/Creatinine Ratio 27.1; Bilirubin, Total 0.2 mg/dL (0.2-1.0); Calcium 8.5 mg/dL (8.5-10.1); Total Protein 7.6 g/dL (6.4-8.2)
[2020-10-30] MEDS ORDERED: HYDROmorphone HCL 2 MG/ML VL IV PRN (11:00)
[2020-10-30] MEDS ORDERED: ONDANSETRON HCL 4 MG/2 ML VIAL IV PRN (11:00)
[2020-10-30] MEDS ORDERED: LABETALOL HCL 5 MG/ML 4ML SYRINGE IV PRN (11:00)
[2020-10-30] MEDS: SILVER SULFADIAZINE 1 % TOPICAL CREAM 50GM TOP SCH (12:27)
[2020-10-30] MEDS: cefTRIAXone 1GM/50ML D5W 50 ML IV SCH (12:27)
[2020-10-30] MEDS: ASCORBIC ACID 500 MG TAB PO SCH ×2 (12:27→22:05)
[2020-10-31] MEDS: SODIUM CHLORIDE 0.9% 1,000 ML IV SCH ×4 (01:07→21:42)
[2020-10-31 05:00] VITALS: BP 107/52
[2020-10-31] MEDS: CLINDAMYCIN 600MG IV 50 ML IV SCH ×3 (05:56→21:42)
[2020-10-31 09:00] VITALS: BP 140/83
[2020-10-31] MEDS: ASCORBIC ACID 500 MG TAB PO SCH ×2 (09:16→21:41)
[2020-10-31] MEDS: cefTRIAXone 1GM/50ML D5W 50 ML IV SCH (09:16)
[2020-10-31 13:00] VITALS: BP 116/74
[2020-10-31] MEDS: SILVER SULFADIAZINE 1 % TOPICAL CREAM 50GM TOP SCH (14:06)
[2020-10-31 16:53] VITALS: BP 159/95
[2020-10-31 22:00] VITALS: BP 114/61
[2020-11-01 04:00] VITALS: BP 107/71
[2020-11-01] MEDS: CLINDAMYCIN 600MG IV 50 ML IV SCH ×3 (06:31→21:14)
[2020-11-01 09:00] VITALS: BP 124/85
[2020-11-01] MEDS: cefTRIAXone 1GM/50ML D5W 50 ML IV SCH (10:25)
[2020-11-01] MEDS: SILVER SULFADIAZINE 1 % TOPICAL CREAM 50GM TOP SCH (10:26)
[2020-11-01] MEDS: ASCORBIC ACID 500 MG TAB PO SCH ×2 (10:26→21:14)
[2020-11-01 12:47] VITALS: BP 126/74
[2020-11-01] MEDS: SODIUM CHLORIDE 0.9% 1,000 ML IV SCH (14:45)
[2020-11-01 16:44] VITALS: BP 100/62
[2020-11-01 22:00] VITALS: BP 128/74
[2020-11-02] MEDS: SODIUM CHLORIDE 0.9% 1,000 ML IV SCH ×3 (00:54→20:45)
[2020-11-02 05:00] VITALS: BP 104/64
[2020-11-02] MEDS: CLINDAMYCIN 600MG IV 50 ML IV SCH ×3 (05:18→22:31)
[2020-11-02] MEDS: cefTRIAXone 1GM/50ML D5W 50 ML IV SCH (09:16)
[2020-11-02] MEDS: ASCORBIC ACID 500 MG TAB PO SCH ×2 (09:17→22:32)
[2020-11-02 11:57] VITALS: BP 125/69
[2020-11-02] MEDS: SILVER SULFADIAZINE 1 % TOPICAL CREAM 50GM TOP SCH (13:36)
[2020-11-02 16:00] VITALS: BP 121/70
[2020-11-02 22:00] VITALS: BP 106/64
[2020-11-02] MEDS: BACLOFEN 10 MG TAB PO SCH (22:31)
[2020-11-03 05:00] VITALS: BP 103/66
[2020-11-03] MEDS: CLINDAMYCIN 600MG IV 50 ML IV SCH ×3 (06:41→23:25)
[2020-11-03] MEDS: BACLOFEN 10 MG TAB PO SCH ×3 (06:41→23:26)
[2020-11-03] MEDS: SODIUM CHLORIDE 0.9% 1,000 ML IV SCH ×2 (06:45→16:45)
[2020-11-03 08:00] VITALS: BP 107/73
[2020-11-03] MEDS: cefTRIAXone 1GM/50ML D5W 50 ML IV SCH ×2 (09:00→12:18)
[2020-11-03 12:00] VITALS: BP 117/70
[2020-11-03] MEDS: ASCORBIC ACID 500 MG TAB PO SCH ×2 (12:18→23:26)
[2020-11-03] MEDS: SILVER SULFADIAZINE 1 % TOPICAL CREAM 50GM TOP SCH (12:19)
[2020-11-03 16:00] VITALS: BP 142/75
[2020-11-03 22:00] VITALS: BP 97/60
[2020-11-04] MEDS: SODIUM CHLORIDE 0.9% 1,000 ML IV SCH ×3 (02:45→15:52)
[2020-11-04 04:54] VITALS: BP 114/75
[2020-11-04] MEDS: CLINDAMYCIN 600MG IV 50 ML IV SCH ×3 (06:00→21:59)
[2020-11-04 08:32] VITALS: BP 108/70
[2020-11-04] MEDS: cefTRIAXone 1GM/50ML D5W 50 ML IV SCH (08:37)
[2020-11-04 08:43] LABS: Basophils # (auto) 0.1 10 ^3/uL (0-0.2); Basophils % (auto) 0.8 % (0.0-2.0); Eosinophils # (auto) 0.2 10 ^3/uL (0-0.8); Eosinophils % (auto) 2.8 % (0.0-7.0); Hematocrit 36.3 % (41.0-53.0); Hemoglobin 12.7 g/dL (13.5-17.5); Lymphocytes # (auto) 3.1 10 ^3/uL (0.4-5.4); Lymphocytes % (auto) 40.1 % (10.0-50.0); Mean Corpuscular Hemoglobin 30.4 pg (28.0-32.0); Mean Corpuscular Hgb Conc. 34.8 g/dL (32.0-36.0); Mean Corpuscular Volume 87.4 fL (80.0-100.0); Monocytes # (auto) 0.9 10 ^3/uL (0-1.3); Monocytes % (auto) 12.3 % (0.0-12.0); Neutrophils # (auto) 3.4 10 ^3/uL (1.6-8.6); Nucleated Red Blood Cells % 0.1 %; Red Blood Cells 4.15 10^6/uL (4.5-5.90); Red Cell Distribution Width 14.3 % (11.8-14.3); White Blood Cell 7.6 10^3/uL (4.4-10.8)
[2020-11-04 09:02] LABS: BUN/Creatinine Ratio 15.4; Calcium 8.9 mg/dL (8.5-10.1); Magnesium 2.1 mg/dL (1.6-2.6); Potassium 3.9 mmol/L (3.5-5.1)
[2020-11-04] MEDS: ASCORBIC ACID 500 MG TAB PO SCH ×2 (10:00→22:00)
[2020-11-04] MEDS: SILVER SULFADIAZINE 1 % TOPICAL CREAM 50GM TOP SCH (10:00)
[2020-11-04] MEDS ORDERED: ceFAZolin 1GM VL ONE (11:43)
[2020-11-04] MEDS ORDERED: MIDAZOLAM HCL 2MG/2ML 2ml VIAL (1mg/ml) ONE (11:54)
[2020-11-04] MEDS ORDERED: fentaNYL CITRATE 100 MCG/2 ML VL ONE (11:54)
[2020-11-04] MEDS ORDERED: MEPERIDINE HCL (25 MG/ML) 1ML VIAL ONE (11:54)
[2020-11-04] MEDS ORDERED: PHENYLEPHRINE HCL 10 MG/ML VL IV ONE (12:06)
[2020-11-04] MEDS ORDERED: PROPOFOL 10 MG/ML 20 ML IV ONE (12:29)
[2020-11-04] MEDS ORDERED: DexAMETHasone SOD PHOS 10MG/1ML VIAL INJ ONE (12:29)
[2020-11-04] MEDS ORDERED: levoFLOXacin 500MG 100 ML IV ONE (12:47)
[2020-11-04] MEDS ORDERED: LABETALOL HCL 5 MG/ML 4ML SYRINGE IV PRN (13:45)
[2020-11-04] MEDS ORDERED: MORPHINE SULFATE 4 MG/ML SYR/VIAL IV PRN (13:45)
[2020-11-04] MEDS: hydrALAZINE HCL 20 MG/ML VL ONE ×2 (13:45→13:55)
[2020-11-04] MEDS ORDERED: ONDANSETRON HCL 4 MG/2 ML VIAL IV PRN (13:45)
[2020-11-04] MEDS ORDERED: HYDROmorphone HCL 2 MG/ML VL IV PRN (13:45)
[2020-11-04] MEDS ORDERED: ePHEDrine SULFATE 50 MG/ML AMP IV PRN (13:45)
[2020-11-04] MEDS ORDERED: MIDAZOLAM HCL 2MG/2ML 2ml VIAL (1mg/ml) IV PRN (13:45)
[2020-11-04] MEDS: BACLOFEN 10 MG TAB PO SCH ×2 (14:00→22:04)
[2020-11-04 17:00] VITALS: BP 158/98
[2020-11-04] MEDS: ONDANSETRON HCL 4 MG/2 ML VIAL IV PRN ×2 (18:28→18:32)
[2020-11-04 22:00] VITALS: BP 106/71
[2020-11-05] VITALS (9 sets, daily range): BP systolic 86–114; BP diastolic 53–87
[2020-11-05] MEDS: CLINDAMYCIN 600MG IV 50 ML IV SCH ×3 (05:33→22:03)
[2020-11-05] MEDS: BACLOFEN 10 MG TAB PO SCH ×3 (05:34→22:03)
[2020-11-05] MEDS: SODIUM CHLORIDE 0.9% 1,000 ML IV SCH ×2 (08:45→18:43)
[2020-11-05] MEDS: cefTRIAXone 1GM/50ML D5W 50 ML IV SCH (09:21)
[2020-11-05] MEDS ORDERED: hydrALAZINE HCL 20 MG/ML VL IV ONE (10:00)
[2020-11-05] MEDS: ASCORBIC ACID 500 MG TAB PO SCH ×2 (10:33→22:03)
[2020-11-05] MEDS: SILVER SULFADIAZINE 1 % TOPICAL CREAM 50GM TOP SCH (10:33)
[2020-11-06] MEDS: SODIUM CHLORIDE 0.9% 1,000 ML IV SCH ×2 (04:48→14:45)
[2020-11-06 05:00] VITALS: BP 144/86
[2020-11-06] MEDS: CLINDAMYCIN 600MG IV 50 ML IV SCH ×3 (06:09→21:48)
[2020-11-06] MEDS: BACLOFEN 10 MG TAB PO SCH ×3 (06:10→21:49)
[2020-11-06 08:35] VITALS: BP 119/67
[2020-11-06] MEDS: ASCORBIC ACID 500 MG TAB PO SCH ×2 (10:26→21:49)
[2020-11-06] MEDS: cefTRIAXone 1GM/50ML D5W 50 ML IV SCH (10:30)
[2020-11-06] MEDS: SILVER SULFADIAZINE 1 % TOPICAL CREAM 50GM TOP SCH (10:30)
[2020-11-06 13:00] VITALS: BP 100/50
[2020-11-06 16:53] VITALS: BP 155/88
[2020-11-06] MEDS: Ensure HIGH Protein Chocolate 8oz Bottle PO SCH (18:42)
[2020-11-06 20:00] VITALS: BP 96/53
[2020-11-06 22:00] VITALS: BP 132/69
[2020-11-07] MEDS: SODIUM CHLORIDE 0.9% 1,000 ML IV SCH ×3 (04:01→20:45)
[2020-11-07 06:00] VITALS: BP 160/80
[2020-11-07] MEDS: CLINDAMYCIN 600MG IV 50 ML IV SCH ×3 (06:07→21:10)
[2020-11-07] MEDS: BACLOFEN 10 MG TAB PO SCH ×3 (06:08→21:10)
[2020-11-07] MEDS: ASCORBIC ACID 500 MG TAB PO SCH ×2 (10:14→21:10)
[2020-11-07] MEDS: cefTRIAXone 1GM/50ML D5W 50 ML IV SCH (10:14)
[2020-11-07] MEDS: Ensure HIGH Protein Chocolate 8oz Bottle PO SCH ×3 (10:15→20:02)
[2020-11-07] MEDS: SILVER SULFADIAZINE 1 % TOPICAL CREAM 50GM TOP SCH (10:15)
[2020-11-07 13:00] VITALS: BP 98/59
[2020-11-07 17:00] VITALS: BP 96/60
[2020-11-07 22:00] VITALS: BP 98/67
[2020-11-08] VITALS (7 sets, daily range): BP systolic 90–137; BP diastolic 57–98
[2020-11-08] MEDS: CLINDAMYCIN 600MG IV 50 ML IV SCH ×3 (05:16→21:19)
[2020-11-08] MEDS: BACLOFEN 10 MG TAB PO SCH ×3 (05:16→21:20)
[2020-11-08] MEDS: SODIUM CHLORIDE 0.9% 1,000 ML IV SCH ×2 (06:17→16:45)
[2020-11-08] MEDS: cefTRIAXone 1GM/50ML D5W 50 ML IV SCH (08:03)
[2020-11-08] MEDS: Ensure HIGH Protein Chocolate 8oz Bottle PO SCH ×3 (08:04→18:00)
[2020-11-08] MEDS: ASCORBIC ACID 500 MG TAB PO SCH ×2 (09:49→21:20)
[2020-11-08] MEDS: SILVER SULFADIAZINE 1 % TOPICAL CREAM 50GM TOP SCH (12:10)
[2020-11-09] MEDS: SODIUM CHLORIDE 0.9% 1,000 ML IV SCH ×3 (02:27→21:14)
[2020-11-09 05:00] VITALS: BP 116/58
[2020-11-09] MEDS: CLINDAMYCIN 600MG IV 50 ML IV SCH ×3 (06:09→21:13)
[2020-11-09] MEDS: BACLOFEN 10 MG TAB PO SCH ×3 (06:10→21:14)
[2020-11-09 08:00] VITALS: BP 114/58
[2020-11-09] MEDS: Ensure HIGH Protein Chocolate 8oz Bottle PO SCH ×3 (08:00→18:15)
[2020-11-09 09:00] VITALS: BP 114/58
[2020-11-09] MEDS: cefTRIAXone 1GM/50ML D5W 50 ML IV SCH (09:24)
[2020-11-09] MEDS: ASCORBIC ACID 500 MG TAB PO SCH ×2 (09:26→21:14)
[2020-11-09] MEDS: SILVER SULFADIAZINE 1 % TOPICAL CREAM 50GM TOP SCH (10:00)
[2020-11-09 13:00] VITALS: BP 121/79
[2020-11-09 17:00] VITALS: BP 113/73
[2020-11-09 22:00] VITALS: BP 89/44
[2020-11-10 05:00] VITALS: BP 125/82
[2020-11-10 05:04] LABS: Basophils # (auto) 0.1 10 ^3/uL (0-0.2); Basophils % (auto) 0.9 % (0.0-2.0); Eosinophils # (auto) 0.4 10 ^3/uL (0-0.8); Hematocrit 35.7 % (41.0-53.0); Hemoglobin 12.2 g/dL (13.5-17.5); Lymphocytes # (auto) 3.3 10 ^3/uL (0.4-5.4); Lymphocytes % (auto) 41.8 % (10.0-50.0); Mean Corpuscular Hemoglobin 29.8 pg (28.0-32.0); Mean Corpuscular Hgb Conc. 34.2 g/dL (32.0-36.0); Mean Corpuscular Volume 87.2 fL (80.0-100.0); Monocytes # (auto) 1.1 10 ^3/uL (0-1.3); Monocytes % (auto) 13.7 % (0.0-12.0); Neutrophils % (auto) 38.6 % (37.0-80.0); Nucleated Red Blood Cells % 0.1 %; Red Blood Cells 4.09 10^6/uL (4.5-5.90); White Blood Cell 7.8 10^3/uL (4.4-10.8)
[2020-11-10] MEDS: CLINDAMYCIN 600MG IV 50 ML IV SCH ×3 (05:18→23:52)
[2020-11-10] MEDS: BACLOFEN 10 MG TAB PO SCH ×3 (05:18→23:52)
[2020-11-10 05:23] LABS: BUN/Creatinine Ratio 15.4; Calcium 8.2 mg/dL (8.5-10.1); Magnesium 2.3 mg/dL (1.6-2.6); Potassium 3.8 mmol/L (3.5-5.1)
[2020-11-10] MEDS: Ensure HIGH Protein Chocolate 8oz Bottle PO SCH ×3 (08:00→18:30)
[2020-11-10] MEDS: SODIUM CHLORIDE 0.9% 1,000 ML IV SCH ×2 (08:12→18:39)
[2020-11-10] MEDS: cefTRIAXone 1GM/50ML D5W 50 ML IV SCH (08:14)
[2020-11-10 08:30] VITALS: BP 125/78
[2020-11-10] MEDS: SILVER SULFADIAZINE 1 % TOPICAL CREAM 50GM TOP SCH (09:45)
[2020-11-10] MEDS: ASCORBIC ACID 500 MG TAB PO SCH ×2 (09:46→23:52)
[2020-11-10] MEDS ORDERED: MIDAZOLAM HCL 2MG/2ML 2ml VIAL (1mg/ml) ONE (13:01)
[2020-11-10] MEDS ORDERED: SODIUM CHLORIDE LOCK 10 ML ONE (13:01)
[2020-11-10] MEDS ORDERED: fentaNYL CITRATE 100 MCG/2 ML VL ONE (13:01)
[2020-11-10] MEDS ORDERED: ONDANSETRON HCL 4 MG/2 ML VIAL ONE (13:01)
[2020-11-10] MEDS ORDERED: PROPOFOL 10 MG/ML 20 ML IV ONE ×2 (13:01→15:25)
[2020-11-10] MEDS ORDERED: levoFLOXacin 500MG 100 ML IV ONE (14:30)
[2020-11-10] MEDS ORDERED: LABETALOL HCL 5 MG/ML 4ML SYRINGE IV PRN (14:45)
[2020-11-10] MEDS ORDERED: MIDAZOLAM HCL 2MG/2ML 2ml VIAL (1mg/ml) IV PRN (14:45)
[2020-11-10] MEDS ORDERED: ePHEDrine SULFATE 50 MG/ML AMP IV PRN (14:45)
[2020-11-10] MEDS ORDERED: MORPHINE SULFATE 4 MG/ML SYR/VIAL IV PRN (14:45)
[2020-11-10] MEDS ORDERED: HYDROmorphone HCL 2 MG/ML VL IV PRN (14:45)
[2020-11-10] MEDS ORDERED: ONDANSETRON HCL 4 MG/2 ML VIAL IV PRN (14:45)
[2020-11-10] MEDS ORDERED: DexAMETHasone SOD PHOS 10MG/1ML VIAL INJ ONE (15:25)
[2020-11-10 20:00] VITALS: BP 123/73
[2020-11-10 22:00] VITALS: BP 123/73
[2020-11-11 05:00] VITALS: BP 96/59
[2020-11-11] MEDS: SODIUM CHLORIDE 0.9% 1,000 ML IV SCH ×2 (05:36→14:45)
[2020-11-11] MEDS: CLINDAMYCIN 600MG IV 50 ML IV SCH (05:45)
[2020-11-11] MEDS: BACLOFEN 10 MG TAB PO SCH ×3 (07:30→21:12)
[2020-11-11] MEDS: Ensure HIGH Protein Chocolate 8oz Bottle PO SCH ×3 (07:55→18:11)
[2020-11-11] MEDS: cefTRIAXone 1GM/50ML D5W 50 ML IV SCH ×3 (08:40→10:05)
[2020-11-11 09:00] VITALS: BP 108/75
[2020-11-11] MEDS: ASCORBIC ACID 500 MG TAB PO SCH ×2 (09:30→21:12)
[2020-11-11] MEDS: SILVER SULFADIAZINE 1 % TOPICAL CREAM 50GM TOP SCH (10:00)
[2020-11-11 13:00] VITALS: BP 151/98
[2020-11-11 15:38] VITALS: BP 96/53
[2020-11-11 17:00] VITALS: BP 106/57
== END 2020-11-11 21:00 | disposition home health service (06) | DRG 710 ==
LOC: ER 14:08 → EDBD 14:08 → OVERFLOW 20:41 → CENTRAL 23:52
PROVIDERS: ADMIT Hospitalist; ATTEND Hospitalist
PROC: 0KBP0ZZ Excision of Left Hip Muscle, Open Approach (ICD-10-PCS; principal; 2020-10-29)
PROC: 0KBP0ZZ Excision of Left Hip Muscle, Open Approach (ICD-10-PCS; 2020-11-04)
PROC: 0HXJXZZ Transfer Left Upper Leg Skin, External Approach (ICD-10-PCS; 2020-11-04)
PROC: 05HA33Z Insertion of Infusion Device into Left Brachial Vein, Percutaneous Approach (ICD-10-PCS; 2020-11-05)
PROC: B54NZZA Ultrasonography of Left Upper Extremity Veins, Guidance (ICD-10-PCS; 2020-11-05)
PROC: 0JB90ZZ Excision of Buttock Subcutaneous Tissue and Fascia, Open Approach (ICD-10-PCS; 2020-11-10)
DX: A41.50 Gram-negative sepsis, unspecified (principal); L89.154 Pressure ulcer of sacral region, stage 4; L89.329 Pressure ulcer of left buttock, unspecified stage; G82.20 Paraplegia, unspecified; E88.09 Other disorders of plasma-protein metabolism, not elsewhere classified; Z20.822 Contact with and (suspected) exposure to COVID-19; B96.4 Proteus (mirabilis) (morganii) as the cause of diseases classified elsewhere; F17.210 Nicotine dependence, cigarettes, uncomplicated; E78.5 Hyperlipidemia, unspecified; E87.6 Hypokalemia; Z48.00 Encounter for change or removal of nonsurgical wound dressing; Z83.3 Family history of diabetes mellitus; Z88.0 Allergy status to penicillin; Z79.899 Other long term (current) drug therapy; T81.30XA Disruption of wound, unspecified, initial encounter
CPT/HCPCS: 36415; 71045; 80048; 80053; 83605; 83735; 85025; 85610; 85730; 86850; 86900; 86901; 87040; 87070; 87075; 87076; 87077; 87081; 87186; 87205; 87426; 96365; 96367; G0378; J0690; J0696; J1100; J1956; J2001; J2185; J2250; J2405; J2704; J3490